=== PATIENT | female | born 1935 | race Caucasian/White ===

== ENCOUNTER 2016-08-29 19:13 | Outpatient (CLI) | payer BC, MEDICARE | END 2016-08-29 19:14 | disposition home or self-care (01) | LOC: EMS 19:13 | PROVIDERS: ATTEND Surgery | DX: R53.1 Weakness (principal) | CPT/HCPCS: A0425; A0429 ==

== ENCOUNTER 2017-08-23 08:00 | Outpatient (CLI) | payer BC, MEDICARE ==
[2017-08-23 19:27] LABS: BUN - BLOOD UREA NITROGEN 19 mg/dL (6-20); CARBON DIOXIDE - CO2 27 mmol/L (21-32); CHLORIDE 109 mmol/L (101-111); CHOL/HDL RATIO 1.9 (<4.4); CHOLESTEROL 109 mg/dL; CREATININE 0.9 mg/dL (0.4-1.0); GFR - MDRD 60 (>89); GLUCOSE 128 mg/dL (70-100); HDL CHOLESTEROL 58 mg/dL; LDL CHOLESTEROL,CALCULATED 34 mg/dL; LDL/HDL RATIO 0.6 (<4.4); SODIUM 141 mmol/L (135-145); VLDL CHOLESTEROL 17 mg/dL
[2017-08-23 19:28] LABS: HB2 TOTAL 16.4 g/dL; HEMOGLOBIN A1C 0.62 g/dL; HEMOGLOBIN A1C % 5.6 % (4.6-6.2)
[2017-08-23 19:41] LABS: THYROID STIMULATING HORMONE < 0.08 uIU/mL (0.34-5.60)
[2017-08-23 19:53] LABS: FOLATE 7.77 ng/mL (5.90 - >24.8)
== END 2017-08-23 08:01 ==
LOC: LAB.WCP 08:00
PROVIDERS: ATTEND Family Medicine
DX: E03.9 Hypothyroidism, unspecified (principal); E11.9 Type 2 diabetes mellitus without complications; M81.0 Age-related osteoporosis without current pathological fracture
CPT/HCPCS: 36415; 80048; 80061; 81599; 82043; 82306; 82607; 82746; 83036; 83721; 84443

== ENCOUNTER 2017-09-13 12:20 | Outpatient (CLI) | payer BC ==
--- NOTE | 2017-09-13 13:46 | CT Report ---
Procedure Date: 09/13/2017 Accession Number: [id number] / [id number] Procedure: CT - Head W/O CPT Code: FULL RESULT: EXAM: Head W/O DATE: 09/13/2017 1:25 PM CLINICAL HISTORY: DEMENTIA COMPARISON: 07/08/2009 TECHNIQUE: Multiaxial CT images were obtained from the foramen magnum to the vertex. IV contrast: None. Reformats: Coronal. In accordance with CT protocol optimization, one or more of the following dose reduction techniques were utilized for this exam: automated exposure control, adjustment of mA and/or KV based on patient size, or use of iterative reconstructive technique. FINDINGS: Parenchyma: No intraparenchymal hemorrhage. No evidence of mass, midline shift, or CT findings of infarction. Chronic ischemic changes in the periventricular white matter structures. Luz-white differentiation is distinct. Extraaxial Spaces: Moderately enlarged, compatible with atrophy. Ventricles: Moderately enlarged, compatible with atrophy. Sinuses: Imaged paranasal sinuses, orbits, and mastoids show no significant abnormality. Bones: No evidence of fracture or calvarial defect. Other: Soft tissue mass involving the left cavernous sinus appears stable in size from previous CT and MRI dated 05/13/2008, compatible with a meningioma. IMPRESSION: Atrophy and chronic ischemic changes. Meningioma involving the left cavernous sinus, stable. RADIA
== END 2017-09-13 12:21 | disposition home or self-care (01) ==
LOC: DI 12:20
PROVIDERS: ATTEND Family Medicine
DX: F03.90 Unspecified dementia, unspecified severity, without behavioral disturbance, psychotic disturbance, mood disturbance, and anxiety (principal); I67.82 Cerebral ischemia; G31.9 Degenerative disease of nervous system, unspecified; D32.0 Benign neoplasm of cerebral meninges
CPT/HCPCS: 70450

== ENCOUNTER 2017-11-29 13:02 | Outpatient (CLI) | payer BC ==
[2017-11-29 18:51] LABS: BASOPHILS # (AUTO) 0.1 10^3/uL (0.0-0.1); BASOPHILS % (AUTO) 2.3 %; EOSINOPHILS # (AUTO) 0.3 10^3/uL (0.0-0.7); EOSINOPHILS % (AUTO) 4.7 %; HGB - HEMOGLOBIN 15.1 g/dL (12.0-16.0); LYMPHOCYTES # (AUTO) 2.3 10^3/uL (1.5-3.5); LYMPHOCYTES % (AUTO) 36.8 %; MEAN CORPUSCULAR HEMOGLOBIN 33.9 pg (27.0-31.0); MEAN CORPUSCULAR HGB CONC 34.4 g/dL (32.0-36.0); MEAN CORPUSCULAR VOLUME 98.6 fL (81.0-99.0); MEAN PLATELET VOLUME 9.3 fL (7.9-10.8); MONOCYTES # (AUTO) 0.4 10^3/uL (0.0-1.0); MONOCYTES % (AUTO) 5.6 %; NEUTROPHILS # (AUTO) 3.2 10^3/uL (1.5-6.6); NEUTROPHILS % (AUTO) 50.6 %; PLT - PLATELET COUNT 146 10^3/uL (130-450); RED BLOOD COUNT 4.46 10^6/uL (4.20-5.40); RED CELL DISTRIBUTION WIDTH 14.9 % (12.0-15.0); WHITE BLOOD COUNT 6.3 x10^3/uL (4.8-10.8)
== END 2017-11-29 13:03 | disposition home or self-care (01) ==
LOC: LAB.WCP 13:02
PROVIDERS: ATTEND Family Medicine
DX: R53.83 Other fatigue (principal)
CPT/HCPCS: 36415; 84443; 85025

== ENCOUNTER 2017-12-01 08:00 | Outpatient (CLI) | payer BC ==
[2017-12-02 19:11] LABS: BILIRUBIN,URINE NEGATIVE (NEGATIVE); GLUCOSE, URINE (UA) NEGATIVE (NEGATIVE); KETONES,URINE (UA) NEGATIVE (NEGATIVE); LEUKOCYTE ESTERASE, URINE NEGATIVE (NEGATIVE); NITRITE,URINE NEGATIVE (NEGATIVE); OCCULT BLOOD,URINE TRACE-INTA (NEGATIVE); PROTEIN,URINE NEGATIVE (NEGATIVE); UROBILINOGEN,URINE 0.2 (NORMAL) E.U./dL (NORMAL)
[2017-12-02 19:18] LABS: CLARITY,URINE CLEAR (CLEAR)
[2017-12-02 19:32] LABS: RBC,URINE 0-5 /HPF (0-5)
[2017-12-02 19:33] LABS: AMORPHOUS SEDIMENT,UR Rare /LPF; BACTERIA,URINE Moderate /HPF (None Seen); SQUAMOUS EPITHELIAL CELL,UR MOD Squamous (<= Few); STARCH,URINE PRESENT
== END 2017-12-01 23:59 | disposition home or self-care (01) ==
LOC: LAB.WCP 08:00
PROVIDERS: ATTEND Family Medicine
DX: R53.83 Other fatigue (principal)
CPT/HCPCS: 81001; 81003; 87086

== ENCOUNTER 2017-12-06 18:12 | Outpatient (CLI) | payer BC | END 2017-12-06 18:13 | disposition critical access hospital (66) | LOC: EMS 18:12 | PROVIDERS: ATTEND Surgery | DX: R53.1 Weakness (principal) | CPT/HCPCS: A0425; A0429 ==

== ENCOUNTER 2017-12-06 18:27 | Observation (INO) | payer BC ==
[2017-12-06] MEDS ORDERED: SODIUM CHLORIDE 0.9% 1,000 ML IV ONE (18:33)
--- NOTE | 2017-12-06 18:35 | ED Physician Documentation ---
History of Present Illness - Stated complaint Stated Complaint: WEAKNESS - Chief complaint Chief Complaint: General - History obtained from History obtained from: Patient, EMS - History of Present Illness Timing: Other (This is a reyes but demented 81-year-old woman who presents by ambulance for frequent falls. Recent diagnosis of UTI and has a prescription for Macrobid which was filled today. No culture data on the chart. Paramedics relate that they have been called out several times over the last few days for falls, always refused transport before today but she seems to be getting worse. Patient is without specific complaint is moderately demented but does answer easy questions.) Review of Systems Unable to obtain: Dementia PD PAST MEDICAL HISTORY - Past Medical History Cardiovascular: Hypertension, High cholesterol Respiratory: None Endocrine/Autoimmune: HyPOthyroidism, Other : Incontinence - Past Surgical History Past Surgical History: Yes General: Cholecystectomy HEENT: Cataracts, Tonsil/Adenoidectomy - Present Medications Home Medications: Ambulatory Orders Medication Instructions Recorded Confirmed Calcium Carbonate/Vitamin D3 1 tab PO BID 08/26/14 08/26/14 [Calcium 500 + Vit D 200 Caplet] Cholecalciferol (Vitamin D3) 1 cap PO DAILY 08/26/14 08/26/14 [Vitamin D] RX: Levothyroxine [Synthroid] 1 tab PO DAILY 08/26/14 08/26/14 RX: Lisinopril 1 tab PO DAILY 08/26/14 08/26/14 RX: Simvastatin [Zocor] 1 tab PO QPM 08/26/14 08/26/14 RX: predniSONE [Deltasone] 2.5 tab PO DAILY 08/26/14 08/26/14 Nitrofurantoin Monohyd/M-Cryst 12/06/17 12/06/17 [Nitrofurantoin Ritchie-Mcr 100 mg] RX: Furosemide 10 mg 12/06/17 - Allergies Allergies/Adverse Reactions: Allergies Allergy/AdvReac Type Severity Reaction Status Date / Time No Known Drug Allergies Allergy Verified 12/06/17 18:32 - Social History Does the pt smoke?: No Smoking Status: Never smoker Does the pt drink ETOH?: No Does the pt have substance abuse?: No - POLST Patient has POLST: No PD ED PE NORMAL - Vitals Vital signs reviewed: Yes - General General: Other (She is alert, oriented to person and knows she is in the hospital but a poor historian generally and does not know the date. 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 Eye Opening: Spontaneous Motor: Obeys Commands Verbal: Confused GCS Score: 14 - Psych Psych: Normal mood, Normal affect Results - Vitals Vitals: Vital Signs - 24 hr 12/06/17 12/06/17 18:29 19:41 Temperature 36.8 C Heart Rate 64 64 Respiratory 20 18 Rate Blood Pressure 137/70 H 172/65 H O2 Saturation 95 97 Oxygen O2 Source Room air - Labs Labs: Laboratory Tests 12/06/17 12/06/17 12/06/17 18:42 18:42 18:42 WBC 6.0 RBC 4.20 Hgb 14.4 Hct 41.0 MCV 97.8 MCH 34.3 H MCHC 35.1 RDW 14.7 Plt Count 130 MPV 8.6 Neut # (Auto) 3.4 Lymph # (Auto) 1.7 Ritchie # (Auto) 0.6 Eos # (Auto) 0.2 Baso # (Auto) 0.1 Absolute Nucleated RBC 0.00 Nucleated RBC % 0.0 Sodium 143 Potassium 3.5 Chloride 110 Carbon Dioxide 26 Anion Gap 7.0 BUN 29 H Creatinine 1.1 H Estimated GFR (MDRD) 47 L Glucose 122 H Lactic Acid 1.5 Calcium 8.7 Total Bilirubin 2.1 H AST 24 ALT 12 Alkaline Phosphatase 61 Total Protein 5.3 L Albumin 3.2 Globulin 2.1 Albumin/Globulin Ratio 1.5 Lipase 24 Urine Color Urine Clarity Urine pH Ur Specific [place] Urine Protein Urine Glucose (UA) Urine Ketones Urine Occult Blood Urine Nitrite Urine Bilirubin Urine Urobilinogen Ur Leukocyte Esterase Urine RBC Urine WBC Ur Squamous Epith Cells Urine Bacteria Urine Mucus Ur Microscopic Review Urine Culture Comments 12/06/17 18:45 WBC RBC Hgb Hct MCV MCH MCHC RDW Plt Count MPV Neut # (Auto) Lymph # (Auto) Ritchie # (Auto) Eos # (Auto) Baso # (Auto) Absolute Nucleated RBC Nucleated RBC % Sodium Potassium Chloride Carbon Dioxide Anion Gap BUN Creatinine Estimated GFR (MDRD) Glucose Lactic Acid Calcium Total Bilirubin AST ALT Alkaline Phosphatase Total Protein Albumin Globulin Albumin/Globulin Ratio Lipase Urine Color YELLOW Urine Clarity CLEAR Urine pH 6.0 Ur Specific [place] 1.020 Urine Protein NEGATIVE Urine Glucose (UA) NEGATIVE Urine Ketones NEGATIVE Urine Occult Blood SMALL H Urine Nitrite NEGATIVE Urine Bilirubin NEGATIVE Urine Urobilinogen 0.2 (NORMAL) Ur Leukocyte Esterase NEGATIVE Urine RBC 11-25 H Urine WBC 0-3 Ur Squamous Epith Cells RARE Squamous Urine Bacteria Rare Urine Mucus Few Strands Ur Microscopic Review INDICATED Urine Culture Comments NOT INDICATED - Rads (name of study) 1v chest Radiology: EMP read contemporaneously (normal) CT Head Radiology: EMP read contemporaneously (NAD, stable meningioma) L hand 3v XR Radiology: EMP read contemporaneously (no frx) PD MEDICAL DECISION MAKING - ED course ED course: This is a fairly demented 81-year-old woman who is cared for by at home who has had an acute decompensation. Recent diagnosis of UTI, but that urine was reviewed, moderate bacteriuria and squamous cells but no other evidence of infection. Repeat urinalysis tonight shows a little blood, no persistent evidence of infection. She does have evidence of dehydration with elevated BUN and creatinine over baseline. She was not doing better after the administration of IV fluids and was unable to ambulate without at least 2 person assistance and a walker. Family was unable to care for her at home. I discussed with him with them that we could place her in observation and they are agreeable, they understand there may be financial penalties for this and plan to private pay for care home stay starting tomorrow. I spoke with Dr. Man for observation at 9:50 PM. - Sepsis Event Vital Signs: Vital Signs - 24 hr 12/06/17 12/06/17 18:29 19:41 Temperature 36.8 C Heart Rate 64 64 Respiratory 20 18 Rate Blood Pressure 137/70 H 172/65 H O2 Saturation 95 97 Oxygen O2 Source Room air Departure - Departure Disposition: ED Place in Observation Clinical Impression: Muscle weakness, Dehydration, Sprain of left hand, Fall Condition: Stable
[2017-12-06 18:55] LABS: BASOPHILS # (AUTO) 0.1 10^3/uL (0.0-0.1); BASOPHILS % (AUTO) 1.5 %; EOSINOPHILS # (AUTO) 0.2 10^3/uL (0.0-0.7); EOSINOPHILS % (AUTO) 3.4 %; HGB - HEMOGLOBIN 14.4 g/dL (12.0-16.0); LYMPHOCYTES # (AUTO) 1.7 10^3/uL (1.5-3.5); LYMPHOCYTES % (AUTO) 28.6 %; MEAN CORPUSCULAR HEMOGLOBIN 34.3 pg (27.0-31.0); MEAN CORPUSCULAR HGB CONC 35.1 g/dL (32.0-36.0); MEAN CORPUSCULAR VOLUME 97.8 fL (81.0-99.0); MEAN PLATELET VOLUME 8.6 fL (7.9-10.8); MONOCYTES # (AUTO) 0.6 10^3/uL (0.0-1.0); MONOCYTES % (AUTO) 10.4 %; NEUTROPHILS # (AUTO) 3.4 10^3/uL (1.5-6.6); NEUTROPHILS % (AUTO) 56.1 %; PLT - PLATELET COUNT 130 10^3/uL (130-450); RED CELL DISTRIBUTION WIDTH 14.7 % (12.0-15.0)
[2017-12-06 19:09] LABS: BILIRUBIN,URINE NEGATIVE (NEGATIVE); GLUCOSE, URINE (UA) NEGATIVE (NEGATIVE); KETONES,URINE (UA) NEGATIVE (NEGATIVE); LEUKOCYTE ESTERASE, URINE NEGATIVE (NEGATIVE); NITRITE,URINE NEGATIVE (NEGATIVE); OCCULT BLOOD,URINE SMALL (NEGATIVE); PROTEIN,URINE NEGATIVE (NEGATIVE); UROBILINOGEN,URINE 0.2 (NORMAL) E.U./dL (NORMAL)
[2017-12-06 19:14] LABS: ALBUMIN 3.2 g/dL (3.2-5.5); ALBUMIN/GLOBULIN RATIO 1.5 (1.0-2.2); BILIRUBIN,TOTAL 2.1 mg/dL (0.2-1.0); CALCIUM 8.7 mg/dL (8.5-10.3); CREATININE 1.1 mg/dL (0.4-1.0); TOTAL PROTEIN 5.3 g/dL (6.7-8.2)
[2017-12-06 19:15] LABS: CLARITY,URINE CLEAR (CLEAR)
[2017-12-06 19:21] LABS: BACTERIA,URINE Rare /HPF (None Seen); MUCUS,URINE Few Strands; SQUAMOUS EPITHELIAL CELL,UR RARE Squamous (<= Few)
--- NOTE | 2017-12-06 19:42 | CT Report ---
Reason: altered, falling Procedure Date: 12/06/2017 Accession Number: [id number] / [id number] Procedure: CT - Head W/O CPT Code: FULL RESULT: EXAM: CT HEAD EXAM DATE: 12/06/2017 07:23 PM. CLINICAL HISTORY: Altered, falling. COMPARISON: HEAD W/O 09/13/2017 1:23 PM BRAIN/ORBITS 05/13/2008 8:57 AM. TECHNIQUE: Multiaxial CT images were obtained from the foramen magnum to the vertex. Reformats: Sagittal and coronal. IV contrast: None. In accordance with CT protocol optimization, one or more of the following dose reduction techniques were utilized for this exam: automated exposure control, adjustment of mA and/or KV based on patient size, or use of iterative reconstructive technique. FINDINGS: Parenchyma: There is generalized volume loss. Periventricular white matter hypodensity likely represent small vessel ischemic disease. There is no evidence of hemorrhage or mass-effect. No clearly acute loss of alvarez-white matter differentiation. Extraaxial Spaces: No acute extra-axial collection. Stable expansile soft tissue density within the left sellar region. There is expansion of adjacent bone. The lesion measures 2.7 x 2.5 cm. Ventricles: Normal in size and position. Sinuses and Orbits: Imaged paranasal sinuses, orbits, and mastoids show no significant abnormality. Bones: No evidence of fracture or calvarial defect. Other: None. IMPRESSION: 1. No acute intracranial CT abnormality. There is no evidence of hemorrhage or mass-effect. 2. Stable mass within the left sellar region. RADIA
--- NOTE | 2017-12-06 19:59 | XRAY Report ---
Reason: hand inj Procedure Date: 12/06/2017 Accession Number: [id number] / [id number] Procedure: XR - Hand 3 View LT CPT Code: FULL RESULT: EXAM: LEFT HAND RADIOGRAPHY EXAM DATE: 12/06/2017 07:36 PM. CLINICAL HISTORY: Hand . Pain over fourth digit. COMPARISON: None. TECHNIQUE: 3 views. FINDINGS: Bones: Normal. No fractures or bone lesions. Joints: Normal. No subluxations. Soft Tissues: Soft tissue swelling at the fourth PIP joint. IMPRESSION: No bony abnormality. RADIA
--- NOTE | 2017-12-06 20:00 | XRAY Report ---
Reason: altered Procedure Date: 12/06/2017 Accession Number: [id number] / [id number] Procedure: XR - Chest 1 View X-Ray CPT Code: 09198 FULL RESULT: EXAM: CHEST RADIOGRAPHY EXAM DATE: 12/06/2017 07:36 PM. CLINICAL HISTORY: Altered mental status. COMPARISON: CHEST 2 VIEW PA/LAT 08/23/2017 11:20 AM. TECHNIQUE: 1 view. FINDINGS: Lungs/Pleura: No focal opacities evident. No pleural effusion. No pneumothorax. Mediastinum: Within exam limitations, the cardiomediastinal contour is normal. Other: No bony abnormalities noted. IMPRESSION: Normal single view chest. RADIA
[2017-12-06] MEDS ORDERED: SODIUM CHLORIDE FLUSH 0.9% 10 ML SYRINGE IVP PRN (21:51)
[2017-12-06] MEDS ORDERED: oxyCODONE 5 MG TABLET PO PRN (21:51)
[2017-12-06] MEDS ORDERED: ACETAMINOPHEN 325 MG TABLET PO PRN (21:51)
[2017-12-06] MEDS ORDERED: ONDANSETRON 4 MG/2 ML VIAL IVP PRN (21:51)
[2017-12-06] MEDS ORDERED: ONDANSETRON ODT 4 MG TABLET TL PRN (21:51)
[2017-12-07] MEDS: risperiDONE 1 MG TABLET PO SCH ×3 (00:55→21:12)
--- NOTE | 2017-12-07 01:11 | HISTORY & PHYSICAL EXAMINATION ---
Chief Complaint - Chief Complaint Chief Complaint: 4 falls in 36 hours History of Present Illness - Admitted From Admitted From:: Emergency room/home Via [facility] - History Obtained From Records Reviewed: Alaina Sanchez History obtained from: Dr. De La Cruz Exam Limitations: Patient is densely demented and all of her history is obtained from [facility] - History of Present Illness HPI Comment/Other: This elderly female still lives at home with her . She and her live in a [id number] unit next to their daughter. It is about 600 ft.. She has dementia. And has been failing with regards to memory loss and most recently refusing to eat. She was last seen by her primary care provider 11/29 because she was sleeping all the time, having very little energy and losing her memory even more. They were referred to social work to discuss placement in a memory care unit but her has been refusing so far. A CBC, TSH and urinalysis were obtained to make sure that her thyroid supplementation was adequ ate and that she did not have a urinary tract infection. The patient has very little bowel or bladder control and the urinalysis was difficult to obtain. She was diagnosed with a urinary tract infection. In looking at the EMR the urinalysis had squamous cells and bacteria so may been a contaminated specimen and was not sent for culture. Even so a prescription was written for Macrobid but the did not pick it up till today, so she has not had any antibiotics. In the last day and a half she is gotten more and more unsteady on her feet and has fallen 4 times. She usually ambulated with a walker and standby assist. She has gotten so weak that she falls when she tried to walk. With the fourth time EMS, decided to bring her to the hospital. In addition to the falls, worsening dementia, she is refusing to eat or drink anything and has gotten quite combative. With Dr. De La Cruz the patient has been afebrile at 36 5. A normal pulse rate. Mildly hypertensive on admission at 172/65 with respirations 18 and 97-99% on room air. She is yelling, screaming, very angry at being here. She will fall asleep, be completely complacent until you wake her up for such things as putting an IV, blood drug, or changing her diaper and then that is where the physical withdrawal and pushing away starts. Her lab studies show her to be dehydrated. August 23 her BUN was 19 and today is 29. Creatinine was 0.9 and today is 1.1. Urinalysis continues to show a small amount of occult blood, 11-25 red cells, 0-3 white cells, rare squamous cells and rare bacteria. Culture is not indicated. CBC is normal. Her CMP shows elevated BUN and creatinine and bilirubin is mildly elevated at 2.1 where it was 0.6 in August 2014. Head CT done to make sure she is not having a stroke shows no acute intracranial CT abnormalities. No evidence of hemorrhage or mass-effect. Stable mass within the left sellar region in this patient who has had pituitary disorder. In 1 of her falls she sprained her hand and a left hand film shows her to have a sprained left fourth digit with soft tissue swelling but no bony abnormality. The patient is to be placed in observation for treatment of a possible UTI with oral antibiotics. If she will let us put an IV we would like to hydrate her. After an overnight stay, the plan is for the patient to be taken [facility] a [facility] facility. Family is aware that she does not meet acute criteria for inpatient status, and they have the financial means to place her at [facility]. History - Past Medical History Cardiovascular: reports: Hypertension, High cholesterol, Other (Bilateral lower extremity edema worsening over the summer 2017 for which she has been treated with Lasix. Chest x-ray done at that time negative for pulmonary edema.[place] to be venous insufficiency of long-standing duration and not interested in the use of compression stockings) Respiratory: reports: Pneumonia (August 2014 with admission) Neuro: reports: Dementia (Donepezil tried in September/October 2017. 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 Followed by Dr. jacobo but has not seen them since 2016. Emphasis that Synthroid dose should be adjusted on the basis of T4 not TSH.) GI: reports: None : reports: Incontinence, Renal insuffiency, Kidney stones Psych: reports: None Musculoskeletal: reports: None, Osteoporosis (Stopped alendronate in 2016 after doing therapy for 5 years) Derm: reports: Other (Candidiasis under her belly pannus treated with nystatin powder) MRSA Hx?: No - Past Surgical History General: reports: Cholecystectomy (November 2006), Other (Left inguinal hernia March 1995, Right inguinal hernia repair March 2011, umbilical hernia repair August 2009) Ortho: reports: Other (Pectus excavatum March 1954, Leg fracture 2000) Neuro: reports: Other (Pituitary Tumor removal Followed by radiation therapy 1989) HEENT: reports: Cataracts (2006), Tonsil/Adenoidectomy (March 1944) - Family & Social History Family History: Mother: Diabetes, Type 2 Family History Comment/Other: Father In his late 80s after complications of stroke, diabetes, colon cancer. Mother was healthy with no medical illnesses Other than her dementia and in her late 80s. There is no sibling history of cancer, hypertension, coronary artery disease. 3 children are stated as healthy But one daughter has had breast cancer Living arrangement: At home ([address] unit that is next to her daughter's house) Living Situation: With spouse/s.o., With family Social History Notes: She was born in [place]. She and her that while going to school in [facility]. They have been for 58 years and they moved to [place] in 1970. 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 She has 3 children. A son who lives in [place], a daughter who lives in [facility], and a daughter who lives in [place] and [place]. The patient has Rarely smoked And stopped completely in 1985. She rarely drinks alcohol. She is cared for at home by her . A family relative name Patrizia. And a caregiver who comes a couple of hours a day on a weekly basis. Her keeps on stating that he can provide care needed to keep his at home and has been refusing to consider memory care placement until as he said, "she can no longer recognize me". When she falls, she cannot be lifted off the floor because of her weight. 3 people need to lift her up. She recently fell on the night and her did not call 911. She has encopresis and enuresis which requires her to wear adult diapers. Her does not see safety risk and he thinks his daughters are exaggerating. She was previously at [facility] for 30 days after hip fracture and her said "she hated it there". - Substance History Use: Uses substance without health or social issues: NONE Abuse: Recurrent use of substance despite neg consequences: NONE Dependence: Experiences withdrawal or developed tolerances: NONE - POLST Patient has POLST: No POLST Status: She has healthcare power of workers compensation attorney as well as advanced directive at home. They are not in the EMR at this time Meds/Allgy - Home Medications Home Medications: Ambulatory Orders Medication Instructions Recorded Confirmed Calcium Carbonate/Vitamin D3 1 tab PO BID 08/26/14 08/26/14 [Calcium 500 + Vit D 200 Caplet] Cholecalciferol (Vitamin D3) 1 cap PO DAILY 08/26/14 08/26/14 [Vitamin D] Levothyroxine [Synthroid] 1 tab PO DAILY 08/26/14 08/26/14 Lisinopril 1 tab PO DAILY 08/26/14 08/26/14 Simvastatin [Zocor] 1 tab PO QPM 08/26/14 08/26/14 predniSONE [Deltasone] 2.5 tab PO DAILY 08/26/14 08/26/14 Furosemide 10 mg 12/06/17 Nitrofurantoin Monohyd/M-Cryst 12/06/17 12/06/17 [Nitrofurantoin Menard-Mcr 100 mg] - Allergies Allergies/Adverse Reactions: Allergies Allergy/AdvReac Type Severity Reaction Status Date / Time No Known Drug Allergies Allergy Verified 12/06/17 18:32 Review of Systems - Constitutional Constitutional: reports: Fatigue, Malaise, Weakness, Poor appetite, Weight loss. denies: Fever, Chills - Eyes Eyes: denies: Pain, Irritation, Amaurosis, Blurred vision, Spots in vision, Field loss - Ears, Nose & Throat Ears, Nose & Throat: denies: Ear pain, Hearing loss, Hearing aids, Tinnitus, Vertigo, Postnasal drainage, Sore throat - Cardiovascular Cariovascular: reports: Edema, Exertional dyspnea. denies: Irregular heart rate, Palpitations, Chest pain, Syncope, Decr. exercise tolerance - Respiratory Respiratory: denies: Cough, Sputum production, Wheezing, Snoring - Gastrointestinal Gastrointestinal: reports: Other (Stool incontinence). denies: Abdominal pain, Abdominal distention, Constipation, Diarrhea - Genitourinary Genitourinary: reports: Dysuria, Frequency, Urgency, Incontinence - Musculoskeletal Musculoskeletal: denies: Muscle pain, Back pain, Muscle aches - Integumentary Integumentary: reports: Rash (Eliane rash). denies: Pruritis, Lesions, Dryness - Neurological Neurological: reports: General weakness, Memory problems (Which have been getting very severe over the last year. Where she had some memory loss and she was dependent on her for cooking, cleaning, her memory loss has become much more profound over the last few months.Her conversational style has gotten increasingly tangential with frequent references to the remote past and unable to stand relevant topic of conversation) - Psychiatric Psychiatric: reports: Anxiety, Hallucinations. denies: Depression, Suicidal, Delusions - Endocrine Endocrine: denies: Polyuria, Polydypsia, Polyphagia - Hematologic/Lymphatic Hematologic/Lymphatic: denies: Anemia, Bruising, Petechiae Exam - Vital Signs Reviewed Vital Signs: Yes Vital Signs: Vital Signs x48h Temp Pulse Pulse Resp BP BP Pulse Ox 12/06/17 23:20 78 20 115/67 98 12/06/17 22:44 78 20 115/67 98 12/06/17 22:20 36.5 C 84 22 136/113 H 99 12/06/17 19:41 64 18 172/65 H 97 12/06/17 18:29 36.8 C 64 20 137/70 H 95 - Physical Exam General Appearance: positive: Alert, Moderate distress (When asleep she is perfectly calm. No tachypnea grimacing of pain, but when you wake her up she starts yelling and does not want to be here and resist all efforts at care) Eyes Bilateral: positive: PERRL ENT: positive: Pharynx nml Neck: positive: No JVD. negative: Stiff neck, Carotid bruit Respiratory: positive: Chest non-tender. negative: Wheezes, Rales, Rhonchi Cardiovascular: positive: Regular rate & rhythm. negative: Gallop/S4, Friction rub Peripheral Pulses: positive: 1+ Abdomen: positive: Non-tender, No organomegaly, Nml bowel sounds, No distention, Other (Abdominal pannus with resolving Eliane) Skin: positive: Warm, Dry, Other (I am trying to get a look at her coccyx, buttocks, but she will not cooperate with physical exam. We will have to wait till she is more cooperative to document skin) Extremities: positive: Non-tender, Pedal edema Neurologic/Psychiatric: positive: CN's nml (2-12), Motor nml, Disoriented to person, Disoriented to place, Disoriented to time Conclusion/Plan - Problem List (1) Dehydration Conclusion/Plan: From lack of p.o. intake. This woman's dementia has progressed to the point that she is not eating or drinking with subsequent weakness, falls, and the dehydration. She will be placed in observation. We hope to hydrate her with IV fluids to at least 1-2 L but she is refusing the IV and hitting out at the nurses and screaming. (2) Dementia with behavioral problem Conclusion/Plan: In reviewing her medical records from her prior physicians in [place] and most recently her physician here on [facility], her dementia or memory loss was really not noted in 2014, 2016 and started to be a problem in 2017. It has progressed to the point that daughters do not feel she is safe to stay at home anymore. has been resistant and has been in denial about her status. Plan is to place her in [facility] tomorrow with private pay. I do not want to give her Ativan since it will only disinhibit her more. I have tried to give her oral Risperdal but she is refusing medications. I hesitate to give her Haldol. Her overall deterioration over the last year leaves her with a poor prognosis with regards to continued life. She may be at the point of needing palliative care with transitioning to hospice. Family is not here at this time, and may be a discussion point for tomorrow. 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 TSH has been checked but TSH is not what you check and hypopituitary is him. You check a T4. We will check fasting cortisol levels in the morning as well as free T4. She may be inadequately supplemented. The problem will be giving her her medications that she is refusing medicines at this time. - Lab Results Fish Bones: 12/06/17 18:42 12/06/17 18:42 - Diagnostic Imaging Results Diagnostic Imaging Results: positive: Final report reviewed - EKG Results EKG Interpreted Independently: No EKG Comparison: Unchanged from prior EKG Core Measures - Anticipated LOS I expect patient to be DC'd or transferred within 96 hours.: Yes - DVT/VTE - Prophylaxis VTE/DVT Device ordered at admit?: No Not Ordered - Patient Reason: Refusal by patient
[2017-12-07] MEDS: SODIUM CHLORIDE FLUSH 0.9% 10 ML SYRINGE IVP SCH ×3 (05:36→16:38)
[2017-12-07] MEDS: SODIUM CHLORIDE 0.9% 1,000 ML IV SCH ×2 (05:36→14:47)
[2017-12-07] MEDS ORDERED: LEVOTHYROXINE 75 MCG TABLET PO SCH (07:30)
[2017-12-07 08:42] LABS: BASOPHILS # (AUTO) 0.1 10^3/uL (0.0-0.1); BASOPHILS % (AUTO) 1.4 %; EOSINOPHILS # (AUTO) 0.2 10^3/uL (0.0-0.7); EOSINOPHILS % (AUTO) 3.9 %; LYMPHOCYTES # (AUTO) 1.4 10^3/uL (1.5-3.5); LYMPHOCYTES % (AUTO) 31.4 %; MEAN CORPUSCULAR HEMOGLOBIN 34.7 pg (27.0-31.0); MEAN CORPUSCULAR HGB CONC 35.4 g/dL (32.0-36.0); MEAN CORPUSCULAR VOLUME 97.9 fL (81.0-99.0); MEAN PLATELET VOLUME 8.8 fL (7.9-10.8); MONOCYTES # (AUTO) 0.4 10^3/uL (0.0-1.0); MONOCYTES % (AUTO) 9.3 %; NEUTROPHILS # (AUTO) 2.3 10^3/uL (1.5-6.6); PLT - PLATELET COUNT 106 10^3/uL (130-450); RED BLOOD COUNT 4.04 10^6/uL (4.20-5.40); RED CELL DISTRIBUTION WIDTH 14.4 % (12.0-15.0); WHITE BLOOD COUNT 4.3 x10^3/uL (4.8-10.8)
[2017-12-07 08:52] LABS: ALBUMIN/GLOBULIN RATIO 1.3 (1.0-2.2); BILIRUBIN,TOTAL 2.5 mg/dL (0.2-1.0); CALCIUM 8.4 mg/dL (8.5-10.3); CREATININE 1.1 mg/dL (0.4-1.0); MAGNESIUM 2.3 mg/dL (1.7-2.8); TOTAL PROTEIN 5.3 g/dL (6.7-8.2)
[2017-12-07] MEDS: LEVOTHYROXINE 100 MCG TABLET PO SCH (11:22)
[2017-12-07] MEDS ORDERED: SODIUM CHLORIDE 0.9% 1,000 ML IV SCH (11:50)
[2017-12-07] MEDS: predniSONE 5 MG TABLET PO SCH (13:02)
[2017-12-07] MEDS: POLYETHYLENE GLYCOL 3350 17 GM PACKET PO SCH (13:06)
[2017-12-07] MEDS: LISINOPRIL 5 MG TABLET PO SCH (13:07)
[2017-12-07] MEDS: CHOLECALCIFEROL 1,000 UNIT TABLET PO SCH (13:09)
[2017-12-07] MEDS: CALCIUM CARB (OYSTER SHELL) 500 MG TABLET PO SCH ×2 (13:15→21:12)
[2017-12-07] MEDS ORDERED: FUROSEMIDE 20 MG/2 ML VIAL IVP SCH (16:05)
--- NOTE | 2017-12-07 16:13 | PROVIDER PROGRESS NOTE ---
Hospitalist Cross-cover Note - Cross-Cover Note Cross-Cover Note: pt present shortness of breath comparing with the morning when I saw pt. hold IVF of NS, order CXR, restore home meds Lasix, order once of IV of lasix 20 mg. Pt is hemodynamic stable now, 98% sats on room air. order tele and ECHO for pt plan d/c tomorrow. pt is still on observation status now.
--- NOTE | 2017-12-07 17:03 | XRAY Report ---
Reason: SOB Procedure Date: 12/07/2017 Accession Number: [id number] / [id number] Procedure: XR - Chest 1 View X-Ray CPT Code: 67420 FULL RESULT: EXAM: CHEST RADIOGRAPHY EXAM DATE: 12/07/2017 04:19 PM. CLINICAL HISTORY: Shortness of breath. COMPARISON: 12/06/2017. TECHNIQUE: 1 view. FINDINGS: Lungs/Pleura: Mild central congestion noted, with probable atelectatic changes at the left base. No gross consolidation noted. Mediastinum: Within exam limitations, the cardiomediastinal contour is normal. Other: None. IMPRESSION: Mild central congestion and left basilar atelectasis without gross consolidation. RADIA
[2017-12-07] MEDS ORDERED: ATORVASTATIN 10 MG TABLET PO SCH (21:00)
[2017-12-08] MEDS: SODIUM CHLORIDE FLUSH 0.9% 10 ML SYRINGE IVP SCH ×2 (01:03→11:09)
[2017-12-08 06:47] LABS: EOSINOPHILS # (AUTO) 0.1 10^3/uL (0.0-0.7); HGB - HEMOGLOBIN 13.1 g/dL (12.0-16.0); LYMPHOCYTES # (AUTO) 1.2 10^3/uL (1.5-3.5); LYMPHOCYTES % (AUTO) 24.9 %; MEAN CORPUSCULAR HEMOGLOBIN 34.7 pg (27.0-31.0); MEAN CORPUSCULAR HGB CONC 35.5 g/dL (32.0-36.0); MEAN CORPUSCULAR VOLUME 97.7 fL (81.0-99.0); MEAN PLATELET VOLUME 9.2 fL (7.9-10.8); MONOCYTES # (AUTO) 0.4 10^3/uL (0.0-1.0); NEUTROPHILS % (AUTO) 63.1 %; PLT - PLATELET COUNT 105 10^3/uL (130-450); RED BLOOD COUNT 3.76 10^6/uL (4.20-5.40); RED CELL DISTRIBUTION WIDTH 14.6 % (12.0-15.0); WHITE BLOOD COUNT 4.7 x10^3/uL (4.8-10.8)
[2017-12-08 06:59] LABS: ALBUMIN 2.8 g/dL (3.2-5.5); ALBUMIN/GLOBULIN RATIO 1.4 (1.0-2.2); BILIRUBIN,TOTAL 1.7 mg/dL (0.2-1.0); CALCIUM 8.9 mg/dL (8.5-10.3); CREATININE 0.9 mg/dL (0.4-1.0); TOTAL PROTEIN 4.8 g/dL (6.7-8.2)
[2017-12-08 07:34] VITALS: BP 117/71
[2017-12-08] MEDS ORDERED: FUROSEMIDE 20 MG TABLET PO SCH ×2 (08:00→09:00)
--- NOTE | 2017-12-08 10:10 | Discharge Plan ---
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 Notify PCP of admission and forward orders to primary provider for signature. Weight on admission and: Daily Call PCP immediately if weight increases by: 2 kg Other Notification Orders: Call PCP immediately if patient develops dyspnea, chest pain/tightness or edema. House Bowel Program: Yes Additional Bowel Program Orders: If no BM after 2 days, nurse may give M.O.M. 30ml PO PRN and/or ducolax Supp 1 RI and/or SANDRO 250mg P.O., and/or senna 1-2 tabs PO. On day 3 nurse may give repeat above order until residents constipation is resolved. Annual Influenza Vaccine (between Nov 16 and June 15): Yes Two-step PPD per [facility] [phone] or approved exception documents: Yes Treatments & Other Orders: may follow up PCP when pt is arrival to [facility] Lab Tests or X-ray Orders: may follow up PCP Medication Orders: PLEASE REFER TO THE DISCHARGE MEDICATION LIST. Insulin Orders?: No - Medications New Prescriptions: Levothyroxine Sodium [Synthroid] 100 mcg PO DAILY #15 tablet - Diet Type: Geriatric Texture: Mech soft Liquids: Thin May have monthly special meal: Yes - Therapies | Activity Activity: Activity as Tolerated Additional Instructions: may follow up PCP when pt is [facility] to [facility]"
--- NOTE | 2017-12-08 10:20 | DISCHARGE SUMMARY ---
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 Man's HPI for pt as the following: This elderly female still lives at home with her . She and her live in a vxnddi-gx-oxb unit next to their daughter. It is about 600 ft.. She has dementia. And has been failing with regards to memory loss and most recently refusing to eat. She was last seen by her primary care provider 11/29 because she was sleeping all the time, having very little energy and losing her memory even more. They were referred to social work to discuss placement in a memory care unit but her has been refusing so far. A CBC, TSH and urinalysis were obtained to make sure that her thyroid supplementation was adequate and that she did not have a urinary tract infection. The patient has very little bowel or bladder control and the urinalysis was difficult to obtain. She was diagnosed with a urinary tract infection. In looking at the EMR the urinalysis had squamous cells and bacteria so may been a contaminated specimen and was not sent for culture. Even so a prescription was written for Macrobid but the did not pick it up till today, so she has not had any antibiotics. In the last day and a half she is gotten more and more unsteady on her feet and has fallen 4 times. She usually ambulated with a walker and standby assist. She has gotten so weak that she falls when she tried to walk. With the fourth time EMS, decided to bring her to the hospital. In addition to the falls, worsening dementia, she is refusing to eat or drink anything and has gotten quite combative. With Dr. De La Cruz the patient has been afebrile at 36 5. A normal pulse rate. Mildly hypertensive on admission at 172/65 with respirations 18 and 97-99% on room air. She is yelling, screaming, very angry at being here. She will fall asleep, be completely complacent until you wake her up for such things as putting an IV, blood drug, or changing her diaper and then that is where the physical withdrawal and pushing away starts. Her lab studies show her to be dehydrated. August 23 her BUN was 19 and today is 29. Creatinine was 0.9 and today is 1.1. Urinalysis continues to show a small amount of occult blood, 11-25 red cells, 0-3 white cells, rare squamous cells and rare bacteria. Culture is not indicated. CBC is normal. Her CMP shows elevated BUN and creatinine and bilirubin is mildly elevated at 2.1 where it was 0.6 in August 2014. Head CT done to make sure she is not having a stroke shows no acute intracranial CT abnormalities. No evidence of hemorrhage or mass-effect. Stable mass within the left sellar region in this patient who has had pituitary disorder. In 1 of her falls she sprained her hand and a left hand film shows her to have a sprained left fourth digit with soft tissue swelling but no bony abnormality. The patient is to be placed in observation for treatment of a possible UTI with oral antibiotics. If she will let us put an IV we would like to hydrate her. After an overnight stay, the plan is for the patient to be taken to a intermediate facility. Family is aware that she does not meet acute criteria for inpatient status, and they have the financial means to place her at [facility]. - ALLERGIES Allergies/Adverse Reactions: Allergies Allergy/AdvReac Type Severity Reaction Status Date / Time No Known Drug Allergies Allergy Verified 12/06/17 18:32 - MEDICATIONS Home Medications: Ambulatory Orders Medication Instructions Recorded Confirmed Calcium Carbonate/Vitamin D3 1 tab PO BID 08/26/14 12/07/17 [Calcium 500-Vit D3 200 Caplet] Cholecalciferol (Vitamin D3) 1,000 unit PO DAILY 08/26/14 12/07/17 [Vitamin D] Lisinopril 5 mg PO DAILY 08/26/14 12/07/17 Simvastatin [Zocor] 40 mg PO QPM 08/26/14 12/07/17 predniSONE [Deltasone] 2.5 mg PO DAILY 08/26/14 12/07/17 Furosemide 10 mg PO DAILY 12/06/17 12/07/17 Levothyroxine Sodium [Synthroid] 100 mcg PO DAILY #15 tablet 12/08/17 - PHYSICAL EXAM AT DISCHARGE General Appearance: positive: No acute distress, Alert. negative: Lethargic Eyes Bilateral: positive: Normal inspection, PERRL, No lid inflammation, Conjunctivae nml ENT: positive: ENT inspection nml, Pharynx nml, No signs of dehydration. negative: Purulent nasal drainage, Pharyngeal erythema, Oral lesions Neck: positive: Nml inspection, Thyroid nml, No JVD, Trachea midline. negative: Thyromegaly, Lymphadenopathy (R), Lymphadenopathy (L), Stiff neck, Swel ling/bruising, Tracheal deviation Respiratory: positive: Chest non-tender, No respiratory distress, Breath sounds nml. negative: Wheezes, Rales, Rhonchi Cardiovascular: positive: Regular rate & rhythm, No murmur, No gallop. negative: Irregularly irregular, Extrasystoles, Tachycardia, Bradycardia, JVD present, Systolic murmur, Diastolic murmur Peripheral Pulses: positive: 2+ Abdomen: positive: Non-tender, No organomegaly, Nml bowel sounds, No distention. negative: Tenderness, Guarding, Rebound Back: positive: Nml inspection. negative: CVA tenderness (R), CVA tenderness (L) Skin: positive: Color nml, No rash, Warm, Dry. negative: Cyanosis, Diaphoresis, Pallor Extremities: positive: Non-tender, Full ROM, Nml appearance. negative: Calf tenderness, Joint swelling, Corey's sign/cords Neurologic/Psychiatric: positive: Mood/affect nml. negative: Weakness, Sensory loss, Facial droop, Slurred/abnml speech, Depressed mood/affect - LABS Result Diagrams: 12/08/17 06:23 12/08/17 06:23 - FOLLOW UP Follow Up: may follow up PCP when pt is arrival to [facility] - TIME SPENT Time Spent in Discharge (Minutes): 45
[2017-12-08] MEDS: LEVOTHYROXINE 100 MCG TABLET PO SCH (10:48)
[2017-12-08] MEDS: predniSONE 5 MG TABLET PO SCH (10:49)
[2017-12-08] MEDS: CALCIUM CARB (OYSTER SHELL) 500 MG TABLET PO SCH (10:50)
[2017-12-08] MEDS: LISINOPRIL 5 MG TABLET PO SCH (10:50)
[2017-12-08] MEDS: CHOLECALCIFEROL 1,000 UNIT TABLET PO SCH (10:52)
[2017-12-08] MEDS: POLYETHYLENE GLYCOL 3350 17 GM PACKET PO SCH (10:53)
== END 2017-12-08 11:15 ==
LOC: EDUNIT# → ED 18:27 → MS2 21:51
PROVIDERS: ADMIT Specialist; ATTEND Nurse Practitioner Gerontology
DX: E86.0 Dehydration (principal); F03.91 Unspecified dementia, unspecified severity, with behavioral disturbance; E89.3 Postprocedural hypopituitarism; R06.02 Shortness of breath; N39.0 Urinary tract infection, site not specified; Z91.81 History of falling; R26.81 Unsteadiness on feet; S63.615A Unspecified sprain of left ring finger, initial encounter; R41.3 Other amnesia; R63.0 Anorexia; I10 Essential (primary) hypertension; E11.9 Type 2 diabetes mellitus without complications; E03.9 Hypothyroidism, unspecified; F41.9 Anxiety disorder, unspecified; R60.0 Localized edema; R15.9 Full incontinence of feces; R32 Unspecified urinary incontinence; E78.00 Pure hypercholesterolemia, unspecified
CPT/HCPCS: 36415; 51701; 70450; 71045; 73130; 80053; 81001; 82533; 83605; 83690; 83735; 84436; 84484; 85025; 93005; 96361; 96374; 99284; 99285; A9270; G0378; J7512; 81003; 84443; 87086; 96360

== ENCOUNTER 2017-12-08 11:26 | Outpatient (CLI) | payer BC | END 2017-12-08 11:27 | disposition home or self-care (01) | LOC: EMS 11:26 | PROVIDERS: ATTEND Surgery | DX: R52 Pain, unspecified (principal); Z91.81 History of falling; Z74.01 Bed confinement status | CPT/HCPCS: A0425; A0428 ==

== ENCOUNTER 2019-01-08 15:51 | Outpatient (CLI) | payer BC ==
--- NOTE | 2019-01-09 16:46 | XRAY Report ---
Reason: HAND PAIN Procedure Date: 01/08/2019 Accession Number: [id number] / [id number] Procedure: XRN - Hand 3 View RT CPT Code: FULL RESULT: EXAM: RIGHT HAND RADIOGRAPHY EXAM DATE: 01/08/2019 04:24 PM. CLINICAL HISTORY: Hand pain. COMPARISON: None. TECHNIQUE: 3 views. FINDINGS: Bones and joints: The bones are quite osteopenic. No definite fracture seen. Fingers poorly evaluated due to contracture. No definite malalignment or obvious significant arthritic changes. Soft Tissues: Normal. No soft tissue swelling. IMPRESSION: Marked osteopenia and flexion of the fingers but without definite acute abnormality seen in the right hand. RADIA
== END 2019-01-08 15:52 | disposition home or self-care (01) ==
LOC: DI.N 15:51
PROVIDERS: ATTEND Family Medicine
DX: M85.841 Other specified disorders of bone density and structure, right hand (principal); M79.641 Pain in right hand

== ENCOUNTER 2019-03-16 20:29 | Outpatient (CLI) | payer BC | END 2019-03-16 20:30 | disposition critical access hospital (66) | LOC: EMS 20:29 | PROVIDERS: ATTEND Surgery | DX: R09.89 Other specified symptoms and signs involving the circulatory and respiratory systems (principal) | CPT/HCPCS: A0425; A0429 ==

== ENCOUNTER 2019-03-16 20:45 | Emergency (ER) | payer BC ==
--- NOTE | 2019-03-16 22:25 | XRAY Report ---
Reason: cough Procedure Date: 03/16/2019 Accession Number: [id number] / [id number] Procedure: XR - Chest 2 View X-Ray CPT Code: 29002 Final Report FULL RESULT: EXAM: CHEST RADIOGRAPHY EXAM DATE: 03/16/2019 09:55 PM. CLINICAL HISTORY: Cough. COMPARISON: CHEST 1 VIEW 12/07/2017 4:09 PM. TECHNIQUE: 2 views. FINDINGS: Lungs/Pleura: No focal opacities evident. No pleural effusion. No pneumothorax. Normal volumes. Mediastinum: Heart and mediastinal contours are unremarkable. IMPRESSION: No acute cardiopulmonary disease seen. RADIA
--- NOTE | 2019-03-16 23:22 | ED Physician Documentation ---
History of Present Illness - Stated complaint Stated Complaint: ASPERATION - Chief complaint Chief Complaint: Resp - History obtained from History obtained from: Family (patient is demented and thus cannot contribute to HPI/ROS. family is at bedside and contributes to HPI) - History of Present Illness Timing: Today - Additonal information Additional information: coughing, wheezing since earlier today. family is concerned she might have aspirated, as she has had similar symptoms in the past with aspiration. Family member notes that patient has improved while awaiting ED evaluation Review of Systems Unable to obtain: Dementia Constitutional: denies: Fever Respiratory: reports: Dyspnea, Cough, Wheezing PD PAST MEDICAL HISTORY - Past Medical History Cardiovascular: Hypertension, High cholesterol, Other Respiratory: Pneumonia Neuro: Dementia, Other Endocrine/Autoimmune: Type 2 diabetes, HyPOthyroidism, Other GI: None : Incontinence, Renal insuffiency, Kidney stones Psych: None Musculoskeletal: None, Osteoporosis Derm: Other - Past Surgical History Past Surgical History: Yes General: Cholecystectomy, Other Ortho: Other Neuro: Other HEENT: Cataracts, Tonsil/Adenoidectomy - Present Medications Home Medications: Ambulatory Orders Medication Instructions Recorded Confirmed Calcium Carbonate/Vitamin D3 1 tab PO BID 08/26/14 12/07/17 [Calcium 500-Vit D3 200 Caplet] Cholecalciferol (Vitamin D3) 1,000 unit PO DAILY 08/26/14 12/07/17 [Vitamin D] Simvastatin [Zocor] 40 mg PO QPM 08/26/14 12/07/17 lisinopriL [Lisinopril] 5 mg PO DAILY 08/26/14 12/07/17 predniSONE [Deltasone] 2.5 mg PO DAILY 08/26/14 12/07/17 Furosemide 10 mg PO DAILY 12/06/17 12/07/17 Levothyroxine Sodium [Synthroid] 100 mcg PO DAILY #15 tablet 12/08/17 - Allergies Allergies/Adverse Reactions: Allergies Allergy/AdvReac Type Severity Reaction Status Date / Time No Known Drug Allergies Allergy Verified 12/06/17 18:32 - Social History Does the pt smoke?: No Smoking Status: Never smoker Does the pt drink ETOH?: No Does the pt have substance abuse?: No - POLST Patient has POLST: No POLST Status: She has healthcare power of litigation attorney associate as well as advanced directive at home. They are not in the EMR at this time PD ED PE NORMAL - Vitals Vital signs reviewed: Yes - General General: No acute distress, Well developed/nourished, Other (awake, alert. Follows some commands. ) - HEENT HEENT: Moist mucous membranes, Other (mild bilateral scleral edema, no discharge) - Cardiac Cardiac: RRR - Respiratory Respiratory: No respiratory distress, Clear bilaterally - Abdomen Abdomen: Soft, Non tender Results - Vitals Vitals: Vital Signs - 24 hr 03/16/19 03/16/19 03/16/19 20:51 22:50 23:10 Temperature 36.6 C Heart Rate 67 68 Respiratory 18 16 Rate Blood Pressure 112/67 115/51 L 107/57 L O2 Saturation 94 98 03/17/19 00:20 Temperature 36.7 C Heart Rate 89 Respiratory 16 Rate Blood Pressure 103/71 O2 Saturation 97 Oxygen O2 Source Room air - Rads (name of study) chest xray Radiology: Prelim report reviewed, See rad report PD MEDICAL DECISION MAKING - ED course Complexity details: reviewed old records, re-evaluated patient, considered differential, d/w family Departure - Departure Disposition: 01 Home, Self Care Clinical Impression: Dyspnea Condition: Good Instructions: ED Dyspnea Shortness of Breath Discharge Date/Time: 03/17/19 00:25
[2019-03-17 00:23] VITALS: BP 103/71
== END 2019-03-17 00:25 | disposition home or self-care (01) ==
LOC: EDUNIT# → ED 20:45
DX: R06.00 Dyspnea, unspecified (principal); I10 Essential (primary) hypertension; E11.9 Type 2 diabetes mellitus without complications; F03.90 Unspecified dementia, unspecified severity, without behavioral disturbance, psychotic disturbance, mood disturbance, and anxiety
CPT/HCPCS: 71046; 99283

== ENCOUNTER 2019-03-17 00:26 | Outpatient (CLI) | payer BC | END 2019-03-17 00:27 | disposition home or self-care (01) | LOC: EMS 00:26 | PROVIDERS: ATTEND Surgery | DX: F03.90 Unspecified dementia, unspecified severity, without behavioral disturbance, psychotic disturbance, mood disturbance, and anxiety (principal) | CPT/HCPCS: A0425; A0428 ==

== ENCOUNTER 2019-10-27 09:20 | Outpatient (CLI) | payer BC ==
--- NOTE | 2019-10-27 18:14 | CONSULTATION NOTE ---
Palliative Care Consultation - Referral Referring Provider: Dr. Moe Foy Time of Visit: [id number] Referral setting: Assisted living Referral Reason: Dementia with behavioral disturabances/Advanced Care Planning - Information Sources Records reviewed: Previous records reviewed History/Review of Systems obtained from: Patient, Family (daughter, Radha), Caregiver, Nursing Exam limitations: Clinical condition (Advanced Dementia) - History of Present Illness Brief History of Present Illness: This is an 83-year-old female who was seen and evaluated today for initial palliative care consultation at [facility] due to advanced dementia and advanced care planning. In discussion with the daughter the patient has had a slow decline with her memory over several years. The patient was originally cared for by her within their home. As both she and her siblings were not local at the time they were unaware of some of the circumstances that were occurring. The patient would become weak and be unable to her assist herself and thus resulted in her being assisted by her elderly . The patient's daughter, Radha moved back to the area approximately 4 years ago. As things steadily progressed the patient's daughter Radha had the patient and her spouse transition to the [id number] on her property where the patient resided for approximately 1 year until she sustained a fall where she was unable to rise from. This subsequently resulted in family discussion and the patient's ultimate placement in [facility] in 2018 where she has resided since that time. In that timeframe the patient's is no longer ambulatory. Prior to her move and she was becoming incontinent and is incontinent of bowel and bladder. The patient has a history of agitation and aggressive outbursts with caregivers. She is presently on quetiapine 25 mg twice daily for her anxiety and agitation. She does have as needed clonazepam to be administered as needed for anxiety or agitation. This was last administered upon review of [facility] on 10/20/2019. Nursing's present concern is in regards to the patient's lower extremity edema. The patient's daughter reports that this has been present for some time. The patient's weight has increased to 203.2 pounds. She weighed 194lb in May 2019. She is presently on furosemide 20 mg daily which is an increase from her previous baseline of furosemide 10 mg daily. Her daughter, Radha reports that the patient has weighed typically between 230 to 240 pounds most of her adult life. She was previously on Ensure supplements twice daily but due to her increasing weight trend these were discontinued10/13/2019. The patient is seen today in her room resting on her right side in bed. No acute distress and was easily arousable. She has many paintings in her room that were by her own hand and was easy to engage to discuss her art work. 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) GI: reports: None : reports: Incontinence, Renal insuffiency, Kidney stones, Other (Urosepsis 06/2009) Psych: reports: None Musculoskeletal: reports: Osteoporosis (s/p alendronate after 5 years completed in 2015) MRSA Hx?: No - Past Surgical History General: reports: Cholecystectomy (11/2006), Other (Left inguinal hernia 03/1995; Inguinal hernia right 03/2011; umbilical hernia repair 08/2009) Ortho: reports: Other (Leg fracture 2000; pectus excavatum 03/1954) Neuro: reports: Other (Pituitary tumor removal followed by radiation 1989) HEENT: reports: Cataracts, Tonsil/Adenoidectomy - Substance History Use: Uses substance without health or social issues: NONE Social History - Living Situation Living arrangement: Assisted living Support System: The patient was born in [place]. She and her moved to [place] in 1970. She has an art degree from [employer] and was working on a PhD at [employer] in [facility]. 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 She and her have 3 children, 2 daughters and 1 son. 1 of their daughters resides in [place]. Their daughter Radha, resides locally with contact number [phone]. The patient resided in [facility] for a period of time. She is fluent in Yakut and Algerian. She enjoys ice cream and Western movies. Prior to the coronavirus pandemic the patient visit her on a daily basis. As he is no longer driving he was using [employer] to commute to be with her. The patient's daughter, Radha reports that the patient's is also frail at the present time and initially was extremely difficult for them to be and although the patient's would not ever admit it it has probably provided some relief for him not being physically present on a daily basis with the patient. Family History - Family History Family History: Mother: , Father: Family History Comment/Other: Mother in her late 80s with dementia. Father in his late 80s after complications of stroke, diabetes and colon cancer. Medications/Allergies - Medications Home Medications: Ambulatory Orders Medication Instructions Recorded Confirmed Acetaminophen 650 mg PO .Q4-6H PRN MDD NTE 10/28/19 10/28/19 6tabs/24h Antacid With Sim 30 ml PO Q4H PRN 10/28/19 Bisacodyl Supp [Dulcolax Supp] 10 mg AR DAILY PRN 10/28/19 10/28/19 Calcium Carbonate/Vitamin D3 1 tab PO BID 10/28/19 10/28/19 [Oyster Shell Calcium-Vit D Tab] Furosemide 20 mg PO DAILY 10/28/19 10/28/19 Guaifenesin [Tussin] 10 ml PO Q4H PRN 10/28/19 10/28/19 Levothyroxine [Synthroid] 100 mcg PO DAILY 10/28/19 10/28/19 Lisinopril [Prinivil] 5 mg PO DAILY 10/28/19 10/28/19 Loperamide [Imodium] PRN MDD per facilty protocol 10/28/19 Magnesium Hydroxide [Milk of 30 ml PO DAILY PRN MDD if no BM in 10/28/19 10/28/19 Magnesia] 3 days Nystatin 1 applic TP BID PRN 10/28/19 10/28/19 QUEtiapine [SEROquel] 25 mg PO BID 10/28/19 10/28/19 Simvastatin 40 mg PO DAILY 10/28/19 10/28/19 Vitamin D3 1,000 unit PO DAILY 10/28/19 clonazePAM [Clonazepam] 0.5 mg PO BID PRN 10/28/19 10/28/19 polyethylene glycoL 3350 [Miralax] 17 g PO DAILY 10/28/19 10/28/19 predniSONE [Prednisone] 2.5 mg PO DAILY 10/28/19 10/28/19 - Allergies Allergies/Adverse Reactions: Allergies Allergy/AdvReac Type Severity Reaction Status Date / Time No Known Drug Allergies Allergy Verified 10/28/19 07:11 Review of Systems - Constitutional Constitutional: reports: Weight gain (weight 203lb; daily weight presently; weight 194lb May 2019). denies: Fatigue - Eyes Eyes: denies: Irritation - Ears, Nose & Throat Ears, Nose & Throat: denies: Hearing aids - Cardiovascular Cardiovascular: reports: Edema. denies: Chest pain - Respiratory Respiratory: denies: Cough, Wheezing - Gastrointestinal Gastrointestinal: reports: Good appetite. denies: Abdominal pain, Constipation, Diarrhea, Vomiting - Genitourinary Genitourinary: reports: Incontinence - Musculoskeletal Musculoskeletal: reports: Other (right hand contracture). denies: Joint pain - Integumentary Integumentary: reports: Dryness. denies: Pruritis - Neurological Neurological: reports: General weakness, Memory problems - Psychiatric Psychiatric: reports: Behavior disturbances - Endocrine Endocrine: reports: Diabetes type 2, Hypothyroidism (due to pituitary removal) - Hematologic/Lymphatic Hematologic/Lymphatic: reports: Bruising - All Other Systems All Other Systems: reports: Reviewed and negative (Review of systems is limited as patient is a poor historian due to dementia and review of systems supplemented by nursing and caregiving staff.) Physical Exam - Vital Signs Temperature: 36.6 C Pulse Rate: 86 Respiratory Rate: 16 O2 Saturation: 94 (on RA at rest) Blood Pressure: 120/63 (left wrist cuff) - Physical Exam General Appearance: positive: No acute distress, Alert, Other (obese elderly woman resting on her right side in bed) Eyes Bilateral: positive: Normal inspection ENT: positive: Other (poor dentition) Neck: positive: No JVD, Trachea midline Cardiovascular: positive: Regular rate & rhythm, No murmur, Other (distant heart sounds) Respiratory: positive: No respiratory distress, Breath sounds nml. negative: Rales Abdomen: positive: Non-tender, Soft, Nml bowel sounds, Obese Skin: positive: Bruising (noted to b/l dorsal aspect of hands, resolving), Other (Scattered seborrheic keratoses to face) Extremities: positive: Pedal edema (+3 BLE pedal to below knees) Neurologic/Psychiatric: positive: Mood/affect nml, Disoriented to place, Disoriented to time Palliative Care - POLST Patient has POLST: Yes POLST Status: DNR, Selective Treatment Anorexia: None Sleep: Sleeps well Constipation: No, Managed Performance Status: Patient is nonambulatory. She is a two-person transfer via sit to stand. She has a tilt in space wheelchair. She is total assist with bathing and hygiene. She is incontinent of bowel and bladder. She is able to self feed. F AST 7C - Palliative Care Discussion: The patient has had a cognitive decline over for several years and then began to have a functional decline with her having the Inability to remain at home being cared for by her elderly . The patient has adjusted well to home place memory care unit. It has been difficult on the patient's due to the separation. Prior to the coronavirus pandemic he was visiting on a daily basis and will be present during meals attempting to encourage food consumption. Recently, the patient's family has been able to have socially distance visits but this is difficult as the patient does not understand why the separation, masks and inability to be affectionate. It is also compounded by the fact that the patient's is hard of hearing and what he says requires interpretation to the patient herself. At the present time the patient's POLST is DN AR with selective treatment. The patient was someone prior to her dementia that was not on top of her health and often neglected follow-up. The patient's is to undergo a procedure and was unavailable to discuss plan of care moving forward and thus based on D POA succession a goals of care discussion was begun with patient's daughter, Radha today. Patient's daughter is insightful recognizing the patient's present quality of life. She would like to focus on comfort measures and weigh benefits versus burdens regarding any interventions with performing interventions that would only maximize comfort. This is a discussion to have further with the patient's spouse with the goal to have this begun in the next few weeks once he has recovered from his procedure. At the present time patient's daughter Radha wishes to proceed with current POLST. Results - Lab Results Lab results reviewed: Yes Lab and Imaging Results: 10/15/2019 Sodium 141, potassium 4.1, BUN 22, creatinine 1.09, estimated GFR 46, glucose 131, alk phos 85, AST 34, ALT 19, WBC 5.1, RBC 3.36, hemoglobin 11.3, hematocrit 33.6%, MCV W1 100, RDW 13, platelets 136, pro BNP 429. Impression and Recommendations - Palliative Care Impression: This is an 83-year-old female who has had a slow progressive cognitive and functional decline due to advancing dementia, FAS T7 C with underlying bilateral lower extremity edema and history of pituitary tumor with pituitary insufficiency and hypothyroidism. Patient has a history of agitation and aggression with caregivers that is intermittent. Palliative care to provide support, establish rapport and build goals of care, provide symptom management and anticipatory guidance. Recommendations/Counseling Done: 1. Bilateral lower extremity edema in setting of venous stasis. Chronic, worsening. Present weight 203 pounds. Patient's weight for most of her adult life range between 232 to 40 pounds. Noted bilateral lower extremity edema with no adventitious lung sounds on examination. Continue furosemide 20 mg daily with room to increase with monitoring of renal function due to renal insufficiency, but wish to try nonpharmacologic interventions with compression wraps to bilateral lower extremities through home health nursing. Request home health nursing to perform MITZY and if MITZY is equal to or greater than 0.8 to apply 2 layer light compression wraps to lower extremities. Discussed with patient's daughter and in agreement for trial of compression wraps. Continue monitoring daily weights to monitor weight trend. 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 Continue prednisone as ordered. Obtain records from Dr. Pb Desir, general passenger agent for review. 3. 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 Continue levothyroxine as ordered. Monitor free T4 for adjustment of levothyroxine and followed by PCP. 4. Dementia with behavioral disturbances. Chronic. Progressive. Fall precautions. On no disease modifying agents. On aricept several years ago and developed side effects and was subsequently discontinued. History of agitation and aggression to caregivers. Request that nursing monitor the patient's behavior every 6 shift and record x2 weeks for DIESEL AUTOMOTIVE TECHNICIAN to review. Continue quetiapine 25 mg twice daily with room to adjust dose up to maximum of 300 mg/day. May consider trial of citralopram in the future for underlying anxiety and agitation for comfort. At the present time continue clonazepam0.5 mg twice daily as needed for anxiety or agitation but consider switch to another benzodiazepine that has a shorter half-life. Given the patient's dementia and chronic comorbidities a gradual decline is expected. 5. Renal insufficiency. GFR 46 mL/min noted 10/15/2019. Avoid nephrotoxic medications. Continue to monitor. 6. Advance care planning.POLST in place as DN AR with selective treatment. Patient's primary D POA, her Dino unavailable at this time due to hearing deficit and upcoming procedure and discussion was had today with subsequent D POA, mayela Garcia via phone. Introduction of goals of care today with patient's daughterRadha. Patient's daughterRadha is cognizant of the patient's present quality of life and overall decline due to her underlying dementia and eventual goal would be to focus on comfort and quality of life. This is a conversation to be continued to be explored with the patient's and daughterRadha conjointly. We will continue to build rapport and further explore goals of care and end of life wishes. FACE to FACE: It would be a taxing and considerable effort for the patient to leave her memory care unit due to her lower extremity edema and nonambulatory state. The patient would benefit from home health nursing for management of lower extremity edema and evaluation for compression wraps. Time Spent: CPT 32287 Plan of care reviewed with nursing staff and patient's daughterRadha via phone with questions answered and addressed and in agreement with plan of care moving forward. Disclaimer: The chart note was formulated using voice recognition technology and unfortunately sound alike errors may occur.
== END 2019-10-27 09:21 | disposition home or self-care (01) ==
LOC: PC 09:20
PROVIDERS: ATTEND Nurse Practitioner Family
DX: Z51.5 Encounter for palliative care (principal); R60.0 Localized edema; I87.8 Other specified disorders of veins; F03.91 Unspecified dementia, unspecified severity, with behavioral disturbance; R63.5 Abnormal weight gain; N28.9 Disorder of kidney and ureter, unspecified; E89.3 Postprocedural hypopituitarism; E89.0 Postprocedural hypothyroidism; Z79.899 Other long term (current) drug therapy; Z79.52 Long term (current) use of systemic steroids; Z66 Do not resuscitate; Z99.3 Dependence on wheelchair

== ENCOUNTER 2019-12-24 16:00 | Outpatient (CLI) | payer BC ==
--- NOTE | 2019-12-24 17:35 | CONSULTATION NOTE ---
Palliative Care Follow Up - Referral Referring Provider: Dr. Amor Paz Time of Visit: Initiated 1600 Referral setting: Assisted living Referral Reason: Dementia/LE edema - Information Sources Records reviewed: Previous records reviewed History/Review of Systems obtained from: Patient, Caregiver, Nursing Exam limitations: Clinical condition (Advanced Dementia) - History of Present Illness Update Brief HPI Update: This is an 83 year old female who is seen and evaluated today in follow-up at [facility] due to advanced dementia and LE edema. The patient has had a slow decline with her memory over several years. The patient was originally cared for by her within their home. As things became increasingly difficult for the patient's spouse to care for her within the home she transition to [facility] in 2018. She has also had a decline in overall function. She is no longer ambulatory and is transferred to a tilt in space wheelchair. She is incontinent of bowel and bladder. She sustained a fall from her chair in November without reported injury. The patient has a history of lower extremity edema. Her former PCP had her on furosemide 20 mg daily. This has subsequently been discontinued. The patient's present weight is 210. Home health nursing is involved and has been working on the patient's lower extremity edema. She presently has Tubigrip to her lower extremities to be applied in the morning and removed in the evening. She had typically weighed between 232 to 40 pounds most of her adult life. The patient is seen her resting on her right side in bed. No acute distress and easily arousable and engaged. Her art work is displayed in the room. When she laughs she has a bit of a rasp. 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 Social History - Living Situation Living arrangement: Assisted living Support System: The patient and her moved [place] in 1970. 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 She and her have 3 children, 2 daughters and 1 son. Their daughter Radha, resides locally with contact number [phone]. She is fluent in Hebrew and Croatian. Due to the coronavirus it has been difficult for the patient to visit her. Per the patient's daughter, Radha, the patient's is having failing health and this has been a difficult time for both of them to be as their health both continues to decline. Medications/Allergies - Medications Home Medications: Ambulatory Orders Medication Instructions Recorded Confirmed Acetaminophen 650 mg PO .Q4-6H PRN MDD NTE 10/28/19 10/28/19 6tabs/24h Antacid With Sim 30 ml PO Q4H PRN 10/28/19 Bisacodyl Supp [Dulcolax Supp] 10 mg AR DAILY PRN 10/28/19 12/25/19 Calcium Carbonate/Vitamin D3 1 tab PO BID 10/28/19 12/25/19 [Oyster Shell Calcium-Vit D Tab] Guaifenesin [Tussin] 10 ml PO Q4H PRN 10/28/19 12/25/19 Levothyroxine [Synthroid] 50 mcg PO DAILY 10/28/19 12/25/19 Lisinopril [Prinivil] 5 mg PO DAILY 10/28/19 12/25/19 Loperamide [Imodium] PRN MDD per facilty protocol 10/28/19 Magnesium Hydroxide [Milk of 30 ml PO DAILY PRN MDD if no BM in 10/28/19 12/25/19 Magnesia] 3 days Nystatin 1 applic TP BID PRN 10/28/19 12/25/19 QUEtiapine [SEROquel] 25 mg PO BID 10/28/19 12/25/19 Simvastatin 40 mg PO DAILY 10/28/19 12/25/19 Vitamin D3 1,000 unit PO DAILY 10/28/19 12/25/19 clonazePAM [Clonazepam] 0.5 mg PO BID PRN 10/28/19 12/25/19 polyethylene glycoL 3350 [Miralax] 17 g PO DAILY 10/28/19 12/25/19 predniSONE [Prednisone] 2.5 mg PO DAILY 10/28/19 12/25/19 Liothyronine [Cytomel] 5 mcg PO DAILY 12/25/19 12/25/19 - Allergies Allergies/Adverse Reactions: Allergies Allergy/AdvReac Type Severity Reaction Status Date / Time No Known Drug Allergies Allergy Verified 10/28/19 07:11 Review of Systems - Constitutional Constitutional: reports: Weight gain (weight 210lb; weight 194lb May 2019). denies: Fever - Eyes Eyes: reports: Corrective lenses. denies: Irritation - Ears, Nose & Throat Ears, Nose & Throat: denies: Hearing aids - Cardiovascular Cardiovascular: reports: Edema. denies: Chest pain - Respiratory Respiratory: denies: Cough, Wheezing - Gastrointestinal Gastrointestinal: reports: Good appetite. denies: Abdominal pain, Constipation, Vomiting - Genitourinary Genitourinary: reports: Incontinence. denies: Dysuria - Musculoskeletal Musculoskeletal: reports: Assistive devices, Transfer issues, Other (right hand contracture). denies: Joint pain - Integumentary Integumentary: reports: Lesions (scattered seborrheic keratosis). denies: Rash - Neurological Neurological: reports: General weakness, Memory problems - Psychiatric Psychiatric: reports: Behavior disturbances (controlled) - Endocrine Endocrine: reports: Diabetes type 2 (diet controlled), Hypothyroidism (due to pituitary removal) - Hematologic/Lymphatic Hematologic/Lymphatic: reports: Bruising - All Other Systems All Other Systems: reports: Reviewed and negative (ROS is limited as patient is a poor historian due to demenita. ROS supplemented by caregivers and nursing staff.) Physical Exam - Vital Signs Temperature: 36.5 C Pulse Rate: 59 O2 Saturation: 99 (on RA at rest) Blood Pressure: 104/64 (left wrist cuff) - Physical Exam General Appearance: positive: No acute distress, Alert, Other (obese) Eyes Bilateral: positive: Normal inspection ENT: positive: No signs of dehydration, Other (poor dentition) Neck: positive: No JVD Cardiovascular: positive: No murmur, Bradycardia, Other (distant heart sounds) Respiratory: positive: No respiratory distress, Breath sounds nml. negative: Rales Abdomen: positive: Non-tender, Soft, Nml bowel sounds, Obese Skin: positive: Bruising (dorsal aspect of left hand, resolving), Other (Scattered seborrheic keratoses to face) Extremities: positive: Pedal edema (+3 pitting BLE edema, most spefically pedal to mid-calf with tubigrip inplace) Neurologic/Psychiatric: positive: Mood/affect nml, Disoriented to place, Disoriented to time Palliative Care - POLST Patient has POLST: Yes POLST Status: DNR, Selective Treatment Pain: No pain Performance Status: FAST 7C - Palliative Care Discussion: The patient has been working with home health nursing in regards to her lower extremity edema. She initially had 2 layer light compression wraps to her lower extremities and has now transition to Tubigrip. Her lower extremity edema appears to be the same despite interventions and after discontinuation of furosemide. Of note, when the patient was on furosemide daily there was no noted change to her lower extremity edema and this is likely due to venous insufficiency. The patient spends much of her day in bed with her lower extremities elevated. When she is up in her tilt in space wheelchair her legs are elevated at that time as well. The patient herself offers no acute concerns. The patient's daughter, Radha reports that the patient's spouse is having further health decline. The patient's daughter is troubled by the limitations from the coronavirus impacting her parents capability of seeing each other on a regular basis. She recognizes the need for protection however visually seeing them both declining and not being able to optimize their time is quite disheartening for her. The hope is that there may be a way at the facility for the patient and her spouse to increase visitations however this is restricted by administration at the facility. Results - Lab Results Lab results reviewed: Yes Lab and Imaging Results: 11/05/2019 Hemoglobin A1c 5%, TSH 0.04, T3 63, free T3 1.7, T4 1.17 Impression and Recommendations - Palliative Care Impression: Is an 83-year-old female who has had a slow, progressive cognitive and functional decline due to advancing dementia, FAS T7 C with bilateral lower extremity edema due to venous insufficiency and history of pituitary tumor. Patient's behavioral disturbances due to her dementia are presently controlled. Palliative care to continue provide support, explore goals of care, provide symptom management and anticipatory guidance. Recommendations/Counseling Done: 1.Bilateral lower extremity edema due to venous insufficiency and long-term prednisone use. Chronic. Patient's present weight is 210 pounds. Patient's weight for most of her adult life has ranged between 232 to 40 pounds. No adventitious lung sounds on examination. While the patient was on prednisone 20 mg daily there appeared to be no change in the patient's underlying edema. Previous pro BNP at 429. No evidence of signs and symptoms of congestive heart failure. Continue Tubigrip's to bilateral lower extremities apply in AM and remove in PM. Home health nursing is to be discharging the patient after following for edema. Continue to encourage lower extremity elevation. If acute change and symptomatic patient could benefit from a short course of furosemide daily. Continue to monitor weights and DC daily weights and obtain on a weekly basis notifying if there is a plus or minus of 3 pound change. 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 Continue prednisone as ordered. 3. Dementia with behavioral disturbances. Chronic. Progressive. Fall precautions. On no disease modifying agents. History of agitation and aggression towards caregivers presently stable. Continue quetiapine 25 mg twice daily. May consider a trial of citalopram in the future if underlying anxiety and agitation are noted. Continue clonazepam 0.5 mg twice daily as needed for anxiety or agitation. Given the patient's dementia and chronic comorbidities a gradual decline is expected. 4.Advanced care planning. POLST in place as DN AR with selective treatment. The patient's primary D POA, her Dino is unable to participate in goals of care over the phone due to his advanced hearing loss despite hearing aids. Plan to meet with Dino and their daughter, Radha in the future to further explore goals of care based on what the patient's wishes would have been. We will continue to build rapport with the patient, Dino, and their daughter Radha moving forward. Supportive listening provided to Radha. Time Spent: CPT 85790 POC reviewed with nursing staff. Contacted daughterRadha via phone and reviewed goals of care with questions answered and addressed. Disclaimer: The chart note was formulated using voice recognition technology and unfortunately sound alike errors may occur.
== END 2019-12-24 16:01 | disposition home or self-care (01) ==
LOC: PC 16:00
PROVIDERS: ATTEND Nurse Practitioner Family
DX: Z51.5 Encounter for palliative care (principal); I87.2 Venous insufficiency (chronic) (peripheral); R60.0 Localized edema; E89.3 Postprocedural hypopituitarism; F03.91 Unspecified dementia, unspecified severity, with behavioral disturbance; R15.9 Full incontinence of feces; R32 Unspecified urinary incontinence; I10 Essential (primary) hypertension; E11.22 Type 2 diabetes mellitus with diabetic chronic kidney disease; N28.9 Disorder of kidney and ureter, unspecified; Z99.3 Dependence on wheelchair; Z66 Do not resuscitate

== ENCOUNTER 2020-01-12 15:20 | Outpatient (CLI) | payer BC ==
--- NOTE | 2020-01-12 17:20 | CONSULTATION NOTE ---
Palliative Care Follow Up - Referral Referring Provider: Dr. Amor Paz Time of Visit: Initated 1520 Referral setting: Assisted living Referral Reason: Change in condition/Dementia - Information Sources Records reviewed: Previous records reviewed History/Review of Systems obtained from: Patient, Family, Caregiver, Nursing Exam limitations: Clinical condition (Advanced Dementia) - History of Present Illness Update Brief HPI Update: This is an 84-year-old female who was seen in evaluated today due to a change in condition reported by facility staff with underlying advanced dementia. Beginning over the weekend the patient has been less engaged and interactive preferring to stay in her room sleeping. She has refused multiple meals. She continues to drink liquids. Staff report that she has no difficulty swallowing liquids and this was noted today when assisting the patient with orange juice at the bedside with this FRAUD ANALYST. The patient herself reports having difficulty swallowing with foods. In discussion with caregivers they note that the patient is easily able to chew but has difficulty swallowing that then results in coughing and subsequently she stops. She has been able to take her medications without reported difficulty. Due to change in condition UA with microscopy and culture were obtained on 01/10 with results today on 01/12/2020 indicative of a urinary tract infection with WBCs greater than 30 per high-power field and RBCs 3-10 per high-powered field and bacteria present. Urine culture is pending. Patient initiated on Macrobid 100 mg twice daily x5 days after review with the patient's daughter/DPOA and patient to receive first dose this evening. She is on routine vital signs and no evidence of fever per staff however, with this FRAUD ANALYST noted temperature 99.5 F today on assessment. The patient's family wish to focus on care within the facility and avoid hospital transfer due to the patient's advanced dementia. The patient herself upon entering the room was not as engaged and robust and talkative as she usually is. 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 Social History - Living Situation Living arrangement: Assisted living Support System: The patient and her moved to [place] in 1970. 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 She and her have 3 children, 2 daughters and 1 son. Their daughter Radha resides locally and is at contact number [phone]. The patient's spouse is significantly hard of hearing and the phone defaults to their daughter Radha. Radha is also listed on the patient's healthcare power of trademark attorney paperwork as subsequent DPOA. Medications/Allergies - Medications Home Medications: Ambulatory Orders Medication Instructions Recorded Confirmed Acetaminophen 650 mg PO .Q4-6H PRN MDD NTE 10/28/19 10/28/19 6tabs/24h Antacid With Sim 30 ml PO Q4H PRN 10/28/19 Bisacodyl Supp [Dulcolax Supp] 10 mg MS DAILY PRN 10/28/19 12/25/19 Calcium Carbonate/Vitamin D3 1 tab PO BID 10/28/19 12/25/19 [Oyster Shell Calcium-Vit D Tab] Guaifenesin [Tussin] 10 ml PO Q4H PRN 10/28/19 12/25/19 Levothyroxine [Synthroid] 50 mcg PO DAILY 10/28/19 12/25/19 Lisinopril [Prinivil] 5 mg PO DAILY 10/28/19 12/25/19 Loperamide [Imodium] PRN MDD per facilty protocol 10/28/19 Magnesium Hydroxide [Milk of 30 ml PO DAILY PRN MDD if no BM in 10/28/19 12/25/19 Magnesia] 3 days Nystatin 1 applic TP BID PRN 10/28/19 12/25/19 QUEtiapine [SEROquel] 25 mg PO BID 10/28/19 12/25/19 Simvastatin 40 mg PO DAILY 10/28/19 12/25/19 Vitamin D3 1,000 unit PO DAILY 10/28/19 12/25/19 clonazePAM [Clonazepam] 0.5 mg PO BID PRN 10/28/19 12/25/19 polyethylene glycoL 3350 [Miralax] 17 g PO DAILY 10/28/19 12/25/19 predniSONE [Prednisone] 2.5 mg PO DAILY 10/28/19 12/25/19 Liothyronine [Cytomel] 5 mcg PO DAILY 12/25/19 12/25/19 - Allergies Allergies/Adverse Reactions: Allergies Allergy/AdvReac Type Severity Reaction Status Date / Time No Known Drug Allergies Allergy Verified 10/28/19 07:11 Review of Systems - Constitutional Constitutional: reports: Fatigue, Fever (temperature 99.5F today) - Eyes Eyes: reports: Irritation (crusting to bilateral upper eyelids resolved with warm washcloth), Corrective lenses - Ears, Nose & Throat Ears, Nose & Throat: denies: Hearing aids - Cardiovascular Cardiovascular: reports: Edema (chronic since 2018). denies: Chest pain - Respiratory Respiratory: reports: Cough (see HPI) - Gastrointestinal Gastrointestinal: reports: Good appetite. denies: Abdominal pain, Constipation, Vomiting - Genitourinary Genitourinary: reports: Incontinence. denies: Dysuria - Musculoskeletal Musculoskeletal: reports: Assistive devices, Transfer issues, Other (right hand contracture). denies: Joint pain - Integumentary Integumentary: reports: Dryness - Neurological Neurological: reports: General weakness, Memory problems - Endocrine Endocrine: reports: Diabetes type 2 (diet controlled), Hypothyroidism (due to pituitary removal) - Hematologic/Lymphatic Hematologic/Lymph: Bruising - All Other Systems All Other Systems: reports: Reviewed and negative (ROS is limited as patient is a poor historian due to demenita. ROS supplemented by caregivers and nursing staff.) Physical Exam - Vital Signs Temperature: 37.5 C Pulse Rate: 73 Respiratory Rate: 20 O2 Saturation: 95 (on RA at rest) Blood Pressure: 100/60 (left wrist cuff) - Physical Exam General Appearance: positive: No acute distress, Other (Easily fatigued and drifting off to sleep during course of evaluation, obese) Eyes Bilateral: positive: Other (crusting to b/l upper eyelids without discharge) ENT: positive: Other (poor dentition and slightly dry mucous membranes) Neck: positive: Trachea midline Cardiovascular: positive: Regular rate & rhythm, No murmur Respiratory: positive: No respiratory distress, Breath sounds nml. negative: Wheezes, Rales Abdomen: positive: Non-tender, Soft, Nml bowel sounds, Obese Skin: positive: Other (Scattered seborrheic keratoses to face) Extremities: positive: Pedal edema (+3 pitting BLE edema, most spefically pedal to mid-calf with tubigrip inplace) Neurologic/Psychiatric: positive: Mood/affect nml, Disoriented to place, Disoriented to time, Other Palliative Care - POLST Patient has POLST: Yes POLST Status: DNR, Selective Treatment Pain: No pain Sleep: Sleeps well Performance Status: FAST 7C - Palliative Care Discussion: Patient has had a decline in her alertness and oral intake over the last several days. He UA with microscopy demonstrated urinary tract infection with a urine culture pending. Discussed with the patient's daughter/DPOA in conjunction with the patient's spouse and the family desires to keep the patient within her familiar surroundings at home place as well as comfortable without transferring to the emergency department. The family feels that the emergency department would ultimately not fix the underlying cause of the patient's decline and could be more disruptive due to the patient's underlying dementia. The family recognizes that if despite oral antibiotic therapy the patient does not make improvement then would need to make a decision regarding further management of her care and are open to a transition to hospice services. The staff have noted a change in the patient's ability to swallow food. Unclear if this is acute due to a urinary tract infection or further progression of the patient's dementia. Reviewed at length with the patient's daughter regarding risk of aspiration pneumonia versus pleasure feeds and family wishes to downgrade diet to pure for ease of swallowing. We will continue to monitor if her diet may be upgraded after potential resolution of her underlying change in condition. The family recognizes that if the patient does have improvement that it is most likely that she will be unable to return to her previous baseline functional status. The patient's spouse also has health complications and being restricted from vis iting due to the coronavirus has been quite impactful on both of them. Impression and Recommendations - Palliative Care Impression: This is an 84-year-old female who has had a slow and progressive cognitive and functional decline due to advancing dementia, FAS T7 C now with an acute change in condition due to underlying urinary tract infection versus further advancement of her dementia. She is having difficulty swallowing solid foods but no impairment with liquids. Family wishes to focus on comfort measures within the facility with avoidance of emergency department evaluation. Palliative care to continue provide support, symptom management and anticipatory guidance with a transition to hospice when appropriate. Recommendations/Counseling Done: 1. Urinary tract infection. Urine culture pending. Will follow with results of urine culture and alter antibiotic therapy if needed. Temperature 99.5 F noted on evaluation today. Initiated on Macrobid 100 mg by mouth twice daily x5 days with creatinine clearance 57 mL/min. Optimistic that the patient may improve however, discussion had with patient's family in regards to preparation for potential worsening condition and if that were to occur would be open to transitioning to hospice services. Continue to monitor closely and provide sup port to the patient's family. 2. Mental status change. Patient demonstrating increased lethargy from her typical baseline of last community of. The patient was able to recognize her daughter on the phone this afternoon. Urinary tract infection likely contributing to her further altered mental state As well as decreased oral intake. Request that facility offer and encourage 140 mL of fluids 3 times daily at each med past x7 days. Continue routine vital signs as ordered for monitoring. 3.Dysphagia. Unclear if the patient is having difficulty surrounding solid foods due to advancement of her dementia or change in mental status due to her Urinary tract infection. Discussion had with patient's daughter/DPOA regarding dietary modification low risk versus benefit of alteration of the patient's diet and risk for aspiration pneumonia. Patient's daughter wishes to optimize the patient's ability to obtain oral foods and we will therefore downgraded the patient's diet to pured for ease of consumption. No evidence of dysphagia with thin liquids noted overtly on evaluation.Patient has improvement in clinical condition consider upgrading the patient's diet for pleasure. 4.Dementia with behavioral disturbances. Chronic. Progressive. Fall precautions. On no disease modifying agents. History of agitation and aggression towards caregivers none reported presently. Continue quetiapine 25 mg twice daily. Given the patient's dementia and chronic morbidities a gradual decline is expected. 4.Care planning. POLST in place as DN AR with selective treatment. Family wishes to focus on comfort within the facility with avoidance of transfer to the hospital. Family is optimistic that the patient will improve but are realistic that she may further decline. If the patient's condition further declines then we will readdress POLST with the patient's spouse and daughter/DPOA to indicate comfort measures that have been verbalized. Time Spent: CPT 41984 Plan of care reviewed with nursing staff. Contacted daughterRadha via phone and reviewed goals of care, initiation of oral antibiotic therapy, review of options regarding management of patient's symptoms, hospice philosophy and care with questions answered and addressed. Disclaimer: The chart note was formulated using voice recognition technology and unfortunately sound alike errors may occur.
== END 2020-01-12 15:21 | disposition home or self-care (01) ==
LOC: PC 15:20
PROVIDERS: ATTEND Nurse Practitioner Family
DX: Z51.5 Encounter for palliative care (principal); N39.0 Urinary tract infection, site not specified; R41.82 Altered mental status, unspecified; R53.83 Other fatigue; R13.10 Dysphagia, unspecified; F03.91 Unspecified dementia, unspecified severity, with behavioral disturbance; I10 Essential (primary) hypertension; E11.29 Type 2 diabetes mellitus with other diabetic kidney complication; E23.0 Hypopituitarism; E03.8 Other specified hypothyroidism; Z66 Do not resuscitate

== ENCOUNTER 2020-04-07 09:20 | Outpatient (CLI) | payer BC ==
--- NOTE | 2020-04-07 20:38 | CONSULTATION NOTE ---
Palliative Care Follow Up - Referral Referring Provider: Dr. Amor Paz Time of Visit: Initiated 919 Referral setting: Assisted living Referral Reason: Dementia/LE edema - Information Sources Records reviewed: Previous records reviewed History/Review of Systems obtained from: Patient, Caregiver, Nursing Exam limitations: Clinical condition (Advanced Dementia) - History of Present Illness Update Brief HPI Update: This is an 84-year-old female who was seen and evaluated today in follow-up at [facility] due to advanced dementia and lower extremity edema. The patient lost her spouse on hospice services acutely in February 2020. Staff report that they continue to talk about the spouse to the patient and is not aware of his . The patient has intermittent throat clearing. This has improved some since she has transitioned to thickened liquids. The patient has some fluctuations in her weight due to her lower extremity edema due to venous insufficiency. She presently weighs 210.4 pounds. She is on routine weights. She is having Tubigrip applied to her lower extremities in the morning and removed in the evening. The patient is typically weighed between 232 to 240 pounds most of her adult life. It is hit or miss regarding the patient's appetite. Often times it will depend on the food choices that are provided if the patient wishes to engage. She is a great proponent of toast and will frequently request this. Staff deny any acute behavioral concerns. The patient is seen resting in bed on her right side. No acute distress and in is engaged in conversation. 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 Social History - Living Situation Living arrangement: Assisted living Support System: The patient is as of February 2020 when her on [facility] hospice services. 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 The patient has 3 children, 2 daughters and 1 son. The patient's daughter Radha, resides locally with contact number [phone]. The patient is fluid in Irish and [place] Islander. The patient continues to have frequent door visits at the facility with her daughter, Radha. Medications/Allergies - Medications Home Medications: Ambulatory Orders Medication Instructions Recorded Confirmed Acetaminophen 650 mg PO .Q4-6H PRN MDD NTE 10/28/19 10/28/19 6tabs/24h Antacid With Sim 30 ml PO Q4H PRN 10/28/19 Bisacodyl Supp [Dulcolax Supp] 10 mg [place] DAILY PRN 10/28/19 12/25/19 Calcium Carbonate/Vitamin D3 1 tab PO BID 10/28/19 12/25/19 [Oyster Shell Calcium-Vit D Tab] Guaifenesin [Tussin] 10 ml PO Q4H PRN 10/28/19 12/25/19 Levothyroxine [Synthroid] 50 mcg PO DAILY 10/28/19 12/25/19 Lisinopril [Prinivil] 5 mg PO DAILY 10/28/19 12/25/19 Loperamide [Imodium] PRN MDD per facilty protocol 10/28/19 Magnesium Hydroxide [Milk of 30 ml PO DAILY PRN MDD if no BM in 10/28/19 12/25/19 Magnesia] 3 days Nystatin 1 applic TP BID PRN 10/28/19 12/25/19 QUEtiapine [SEROquel] 25 mg PO BID 10/28/19 12/25/19 Simvastatin 40 mg PO DAILY 10/28/19 12/25/19 Vitamin D3 1,000 unit PO DAILY 10/28/19 12/25/19 clonazePAM [Clonazepam] 0.5 mg PO BID PRN 10/28/19 12/25/19 polyethylene glycoL 3350 [Miralax] 17 g PO DAILY 10/28/19 12/25/19 predniSONE [Prednisone] 2.5 mg PO DAILY 10/28/19 12/25/19 Liothyronine [Cytomel] 5 mcg PO DAILY 12/25/19 12/25/19 - Allergies Allergies/Adverse Reactions: Allergies Allergy/AdvReac Type Severity Reaction Status Date / Time No Known Drug Allergies Allergy Verified 10/28/19 07:11 Review of Systems - Constitutional Constitutional: reports: Fatigue, Other (weight loss trend but stable weight from December 2019 at 210.4lb presently). denies: Fever - Eyes Eyes: reports: Corrective lenses - Ears, Nose & Throat Ears, Nose & Throat: denies: Hearing aids - Cardiovascular Cardiovascular: reports: Edema. denies: Chest pain - Respiratory Respiratory: reports: Cough (see HPI) - Gastrointestinal Gastrointestinal: reports: Other (appetite waxes and wnes). denies: Const ipation, Vomiting - Genitourinary Genitourinary: reports: Incontinence. denies: Dysuria - Musculoskeletal Musculoskeletal: reports: Assistive devices, Transfer issues, Other (right hand contracture). denies: Joint pain - Integumentary Integumentary: reports: Dryness - Neurological Neurological: reports: General weakness, Memory problems - Psychiatric Psychiatric: reports: Behavior disturbances (controlled) - Endocrine Endocrine: reports: Diabetes type 2 (diet controlled), Hypothyroidism (due to pituitary removal) - All Other Systems All Other Systems: reports: Reviewed and negative (ROS is limited as patient is a poor historian due to demenita. ROS supplemented by caregivers and nursing staff.) Physical Exam - Vital Signs Temperature: 36.9 C Pulse Rate: 57 O2 Saturation: 98 (on RA) Blood Pressure: 155/68 (left wrist) - Physical Exam General Appearance: positive: No acute distress, Other (obese) Eyes Bilateral: positive: Normal inspection ENT: positive: Other (poor dentition with some noted dental plaque) Neck: positive: Trachea midline Cardiovascular: positive: No murmur, Bradycardia Respiratory: positive: No respiratory distress, Breath sounds nml. negative: Wheezes Abdomen: positive: Non-tender, Soft, Nml bowel sounds, Obese Skin: positive: Other (Scattered seborrheic keratoses to face; skin tags to base of neck greatest on left side) Extremities: positive: Pedal edema (+3 pitting BLE edema (baseline) with tubigrip inplace) Neurologic/Psychiatric: positive: Mood/affect nml, Disoriented to place, Disoriented to time Palliative Care - POLST Patient has POLST: Yes POLST Status: DNR, Selective Treatment Pain: No pain Performance Status: FAS T7 C - Palliative Care Discussion: The patient continues to have lower extremity edema due to her venous insufficiency and is tolerating daily Tubigrip applications. Her weight will have some minor fluctuations but is presently holding at about 210 pounds which was noted in December 2019 as well. The patient recently lost her spouse in February 2020 on hospice services. On examination today she does not appear to perceive this loss and appears quite content. Facility staff have reported that there has been no evidence of depressive symptoms and the patient's daughter, Radha continues to visit regularly with door visits because of limitations due to coronavirus. Impression and Recommendations - Palliative Care Impression: This is an 84-year-old female who has had a slow, progressive cognitive and functional decline due to advancing dementia, FAS T7 C with bilateral lower extremity edema due to venous insufficiency. Her weight appears to overall be stable at 210.4 pounds presently. No behavioral concerns reported by the facility staff. Palliative care to continue to provide support for symptom management, care coordination and anticipatory guidance. Recommendations/Counseling Done: 1. Bilateral lower extremity edema due to venous insufficiency and long-term prednisone use. Chronic. Patient's present weight is 210.4 pounds. Most of her adult life has been between 232 and 240 pounds. No adventitious lung sounds on examination. Continue Tubigrip's to bilateral lower extremities applied in the a.m. and removed in the p.m. Continue to encourage lower extremity elevation. Continue to monitor weekly weights and notify if there is a plus or minus of 3 pound change. 2. Hyperlipidemia. Patiently is presently on simvastatin 40 mg in the evening. Given the patient's advanced age and chronic comorbidities with time to benefit of statin therapy would consider discussion with daughter/DPOA for discontinuation. Patient also desires a reduction in her pill burden. 3. Dementia with behavioral disturbances. Chronic. Progressive. Fall precautions. On note disease modifying agents. History of agitation and aggression towards caregivers in the past with no recent events. Continue quetiapine 25 mg twice daily. If agitation and aggression remains stable without incident may consider dose reduction of quetiapine. Continue clonazepam 0.5 mg twice daily as needed for anxiety or agitation. Review of MAR indicates that there has been no recent need for administration of clonazepam. Given the patient's dementia and chronic comorbidities a gradual decline is expected. Time Spent: CPT 66202 Plan of care reviewed with nursing staff with questions answered and addressed. Contacted patient's daughter at [phone] and left generalized message for daughter Radha/DPOA to discuss plan of care and awaiting return call. Disclaimer: The chart note was formulated using voice recognition technology and unfortunately sound alike errors may occur.
== END 2020-04-07 09:21 | disposition home or self-care (01) ==
LOC: PC 09:20
PROVIDERS: ATTEND Nurse Practitioner Family
DX: Z51.5 Encounter for palliative care (principal); R60.0 Localized edema; I87.2 Venous insufficiency (chronic) (peripheral); F03.91 Unspecified dementia, unspecified severity, with behavioral disturbance; E11.29 Type 2 diabetes mellitus with other diabetic kidney complication; I10 Essential (primary) hypertension; Z66 Do not resuscitate

== ENCOUNTER 2020-04-22 15:00 | Outpatient (CLI) | payer BC ==
--- NOTE | 2020-04-22 17:12 | CONSULTATION NOTE ---
Palliative Care Follow Up - Referral Referring Provider: Dr. Amor Paz Time of Visit: [id number] Referral setting: Assisted living Referral Reason: Change in Condition/AMS/Goals of Care - Information Sources Records reviewed: Previous records reviewed History/Review of Systems obtained from: Caregiver (facility staff) Exam limitations: Clinical condition (patient nonresponsive) - History of Present Illness Update Brief HPI Update: This is an 84-year-old woman who has been followed by palliative care, for her advanced dementia, she had presented as a [address] She had been having slow and progressive cognitive and functional decline, with underlying bilateral lower extremity edema, and history of pituitary tumor with pituitary insufficiency and hypothyroidism. She was admitted in December 2019, with goal to establish goals of care, provide symptom management, and anticipatory guidance. Provider was contacted today, as patient had an acute change in condition. In follow-up she has been her self last week, which is interactive, is verbal, weight has been fairly stable, last treated for UTI in December. She has been having increasing dysphagia, Often demonstrated with intermittent throat clearing, as well as drooling. She had transition to thickened liquids. I spoke to the daughter, which she is seeing her the day before, she was somewhat lethargic, and less able to engage. Notification today showed that she had vomited last night, I did speak to the caregiver who witnessed this. She r eports it was before dinner, was undigested food, and she had not eaten dinner, nor did she eat breakfast this morning. They were able to get medications in this morning, but patient is not responsive at this point in time. On examination, patient does not arouse to painful stimuli. When assisted by aide and turned on side, she does open her eyes, but looks far off does not focus on provider. She demonstrates no pain behaviors with abdominal pressure/palpation, her bowel tones are normal, she does have some upper airway secretions, but does not appear in distress. She has been resting comfortably most of the day, but was unable to be aroused. Daughter was aware I was coming to provide examination, had clarify goals prior to examination comfort and focus. Patient would not be able to take routine medications, nor oral meds at this point in time. In follow-up with daughter goal is to focus on comfort, no transfer, and in agreement with recommendation to transition to hospice care. Social History - Living Situation Living arrangement: Assisted living Support System: Patient spouse Dino recently on hospice February 2020. Patient was not aware of his , patient was born in [place], she and her moved [place] 1970. She has an art degree for an [employer], she has multiple beautiful paintings in her room of bright colors. 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 Their daughter Radha who resides locally, did care for her father with hospice at home. She is aware of the natural progression and hospice services. Medications/Allergies - Medications Home Medications: Ambulatory Orders Medication Instructions Recorded Confirmed Antacid With Sim 30 ml PO Q4H PRN 10/28/19 04/22/20 Bisacodyl Supp [Dulcolax Supp] 10 mg [place] DAILY PRN 10/28/19 04/22/20 Nystatin 1 applic TP BID PRN 10/28/19 04/22/20 clonazePAM [Clonazepam] 0.5 mg PO BID PRN 10/28/19 04/22/20 Acetaminophen [Tylenol] 650 mg [place] Q8HR 04/22/20 04/22/20 Hyoscyamine [Levsin] 1 tab PO Q6HR PRN 04/22/20 04/22/20 LORazepam [Ativan] 0.5 mg PO Q6HR PRN 04/22/20 04/22/20 Morphine Sulfate [Morphine Sulf 5 mg PO Q3HR PRN 04/22/20 04/22/20 Oral (Roxanol)] - Allergies Allergies/Adverse Reactions: Allergies Allergy/AdvReac Type Severity Reaction Status Date / Time No Known Drug Allergies Allergy Verified 10/28/19 07:11 Review of Systems - Constitutional Constitutional: reports: Weight loss. denies: Fever - Eyes Eyes: reports: Corrective lenses - Ears, Nose & Throat Ears, Nose & Throat: reports: Dental decay, Dry mouth - Cardiovascular Cardiovascular: reports: Edema - Respiratory Respiratory: denies: SOB at rest - Gastrointestinal Gastrointestinal: reports: Vomiting (vomited x 1 yesterday; no further vomiting), Other (no intake since yesterday lunch except pills this am) - Genitourinary Genitourinary: reports: Dysuria, Incontinence - Musculoskeletal Musculoskeletal: reports: Muscle weakness, Joint pain, Other (right hand contracture) - Integumentary Integumentary: reports: Dryness - Neurological Neurological: reports: General weakness, Other (nonresponsive) - Endocrine Endocrine: reports: Diabetes type 2 (diet controlled), Hypothyroidism (due to pituitary removal) - All Other Systems All Other Systems: reports: Other (limited patient nonresponsive) Physical Exam - Vital Signs Temperature: 98.2 C Pulse Rate: 92 Respiratory Rate: 20 O2 Saturation: 95 (ra @ rest) Blood Pressure: 128/68 - Physical Exam General Appearance: positive: No acute distress, Nonresponsive Eyes Bilateral: positive: Other (opened only when turned; gazing past provider) ENT: positive: Dry mucous membranes (oral care provided with toothettes), Other (poor dentition with some noted dental plaque) Neck: positive: Trachea midline Cardiovascular: positive: Regular rate & rhythm Respiratory: positive: No respiratory distress, Diminished in bases, Rhonchi (upper airway anteriorly). negative: Wheezes, Rales Abdomen: positive: Non-tender, Soft, Nml bowel sounds, Obese Skin: positive: Other (Scattered seborrheic keratoses to face;) Extremities: positive: Pedal edema (+2-3 pitting BLE edema (baseline) with tubigrip inplace) Neurologic/Psychiatric: positive: Other (nonresponsive) Palliative Care - POLST Patient has POLST: Yes POLST Status: DNR, Selective Treatment (in review with daughter; goal for comfort measures and transition to hospice; not updated as not in facility) Performance Status: Patient previous level of functioning prior to event, was up in tilt in space wheelchair, she has been nonambulatory, she is a 2 person via sit to stand. She is total assist with bathing hygiene, incontinent of bowel and bladder. She had been able to self feed previous to this. Currently she is needing max assist for turning and repositioning. Head of bed elevated to manage secretions - Palliative Care Discussion: Radha patient's daughter, is appropriately tearful on the phone. She just lost her father in February. He had been cared for at her home with hospice, so she is familiar with hospice and hospice philosophy. Did suggest given patient's level of nonresponsiveness, and goals of care for comfort, to consider transitioning to hospice, daughter in agreement. Unfortunately there is no opening until Man[place], discussed would put the pieces in place so staff had what they need to do to make her comfortable. She is in agreement with this. Did speak to [facility] leadership, and hopes to be able to allow daughter for visiting, as patient may transition before hospice admit. Impression and Recommendations - Palliative Care Impression: This is a 84-year-old woman with advanced dementia, known FAS T7 C prior to today's visit. Patient had some kind of "event" / acute change in condition, currently is nonresponsive, does not appear in any distress, after goals of care conversation decision has been made to transition her to hospice. Will focus on comfort measures in the meantime, orders were written appropriately. Recommendations/Counseling Done: 1. Altered Mental Status. Unknown etiology, patient very well could have aspirated with vomiting yesterday, had a small stroke, or undetected infection without acute symptoms that has led to her demise. Currently patient appears comfortable, goals of care are to focus on comfort, patient is unable to take any further medications and would need transport to hospital for further work- up. Discussion with daughter regarding patient's goals, current quality of life, decision has been made to transition her to comfort measures. Did reach out to hospice, for pending admit. Will be able to admit on Saturday. 2. Advanced care planning. Referral made to hospice, comfort medications written. Patient not in acute distress, but could be made more comfortable. We will schedule as patient is unable to swallow, acetaminophen suppository 650 mg every 8 hours, will make available morphine for respiratory distress or uncontrolled pain 5 mg every 3 hours, patient is having some upper airway secretions, will order hyoscycamine 0.125 mg every 6 hours, and Lorazepam 0.5 mg every 6 hours for agitation. Reviewed orders with facility nurse, she will include and care plan every 2 hour turning, and oral care. They do have toothettes available. Did request family be able to see patient, as her passing may come quicker than Saturday, awaiting final response. Time Spent: 60 minutes with greater than 50% of this done in counseling and coordination of care with facility staff, follow-up with daughter, and ordering of comfort medications, referral to hospice.
== END 2020-04-22 15:01 | disposition home or self-care (01) ==
LOC: PC 15:00
PROVIDERS: ATTEND Nurse Practitioner Adult Health
DX: Z51.5 Encounter for palliative care (principal); R40.4 Transient alteration of awareness; F03.90 Unspecified dementia, unspecified severity, without behavioral disturbance, psychotic disturbance, mood disturbance, and anxiety; Z66 Do not resuscitate